=== PATIENT | female | born 1945 | race Caucasian/White ===

== ENCOUNTER → 2018-08-21 | Outpatient (CLI) | payer MEDICARE, OTHER ==
--- NOTE | 2018-08-21 12:53 | CT ---
EXAMINATION TYPE: CT thoracic spine wo con DATE OF EXAM: 08/21/2018 COMPARISON: None HISTORY: Upper back pain with known fracture per patient CT DLP: 536.2 mGycm Automated exposure control for dose reduction was used. TECHNIQUE: Axial images 3 mm thick sections. Reconstructed images in the coronal and sagittal plane. FINDINGS: There is a compression deformity of T4 of indeterminate age. No posterior wall displacement is eviden t. No spinal canal stenosis is present. There is a tiny amount of increased density along the posteri or lateral thecal sac of indeterminate etiology. Series 201 image [id number]. Minimal superior endplate compression of T6 is present. No posterior wall displacement is evident. No spinal canal stenosis is present. There is inferior endplate compression of T10. Minimal endplate impression from the posterior wall is present. Significant displacement into the thecal sac is not evident. No stenosis is present. There is vertebral plasty of a severe L1 compression deformity. Some mild superior endplate and infer ior endplate displacement into the spinal canal is present. No spinal canal stenosis is evident. No d efinite cord contact or compression is evident. Note is made of some facet hypertrophy at the T12-L1 level. There is degenerative disc changes within the thoracic spine including vacuum disc phenomenon present T11-12 and T8-9. No spinal canal stenosis is present. IMPRESSION: 1. COMPRESSION DEFORMITIES OF INDETERMINATE AGE T4 AND MILDLY PRESENT T6 AND INFERIOR ENDPLATE T10. 2. MINIMAL POSTERIOR WALL DISPLACEMENT FROM AN OLD COMPRESSION DEFORMITY AT L1 MILD ANTERIOR THECAL S AC COMPRESSION. VERTEBRAL PLASTY IS PRESENT AT L1.
== END ==
LOC: RADCTMAIN 12:06
PROVIDERS: ATTEND Nurse Practitioner Acute Care
DX: M43.8X4 Other specified deforming dorsopathies, thoracic region (principal); Z98.890 Other specified postprocedural states
CPT/HCPCS: 72128

== ENCOUNTER → 2018-09-11 | Outpatient (CLI) | payer MEDICARE, OTHER ==
--- NOTE | 2018-09-11 12:07 | CT ---
EXAMINATION TYPE: CT thor lumbar spine wo con DATE OF EXAM: 09/11/2018 COMPARISON: CT thoracic spine dated 08/21/2018 HISTORY: Complains of severe back pain CT DLP: 417.6 mGycm Automated exposure control for dose reduction was used. FINDINGS: There is grade 1 anterolisthesis of L4 on L5, likely on a degenerative basis due to facet hypertrophy . Nose pars interarticularis defects are seen. The remainder of the lumbar spine and thoracic spine v ertebral bodies maintain normal alignment. Multilevel vertebral body height loss is detailed below. There is a compression deformity of T4 with vertebroplasty. Height loss is approximately 50%. No retr opulsion is seen. Tiny increased density along the posterior lateral thecal sac may relate to extrava sated cement material, possibly venous or epidural. This is stable from the prior exam. There is minimal superior endplate compression forming at T6 with vertebroplasty as seen on the prior . No retropulsion. There is a progressed compression deformity of T10 with subsequent vertebral body sclerosis now appro ximately 50% vertebral body height loss of both the anterior and posterior aspects of the vertebral b delia involving the superior endplate and inferior endplate. There is retropulsion of the inferior post erior endplate approximately 3 mm into the spinal canal. There is a stable approximately 80% compression deformity of the the L1 vertebral body with kyphoplas ty change extending into the intervertebral disc space. Very minimal retropulsion of the superior and inferior endplates are seen into the spinal canal. There is a stable superior endplate compression deformity of the L2 vertebral body with intervertebra l disc space segment between L1 and L2. No significant retropulsion. There is compression deformity of the L5 vertebral body of approximately 40% with minimal retropulsi on of the superior posterior endplate. There is multilevel degenerative disc disease of the thoracic and lumbar spine without significant ne ural foraminal narrowing throughout the thoracic spine. Within the lumbar spine there is resultant mi ld neural foraminal narrowing bilaterally at L1-L2, moderate bilateral neural foraminal narrowing at L2-L3 and L3-L4, and moderate right neural foraminal narrowing at L4-L5 as well as mild left neural f oraminal narrowing at L4-L5. Moderate bilateral neural foraminal narrowing at L5-S1 is also seen. Multilevel mild spinal canal stenosis is present at L1-L2, L2-L3, L3-L4, and L4-L5. Mild spinal canal stenosis from the retropulsion is seen at T10-T11. There is a moderate hiatal hernia incidentally seen with atherosclerosis of the thoracic aorta and pa rtial visualization of coronary arteries. 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 Left renal cystic lesion is partially visualized and incompletely evaluated without cont rast measuring approximately 2.3 cm. IMPRESSION: 1. PROGRESSIVE COLLAPSE OF THE PREVIOUSLY SEEN COMPRESSION DEFORMITY OF THE T10 VERTEBRAL BODY, NOW P ROXIMALLY 50% WITH 3 MM RETROPULSION OF THE INFERIOR POSTERIOR ENDPLATE INTO THE SPINAL CANAL CREATIN G MILD SPINAL CANAL STENOSIS. 2. COMPRESSION DEFORMITY OF THE L5 VERTEBRAL BODY WITHOUT RESULTANT SPINAL CANAL STENOSIS DESCRIBE D ABOVE. 3. MULTILEVEL STABLE COMPRESSION DEFORMITIES, SOME OF WHICH DEMONSTRATE VERTEBROPLASTY SEEN ON THE PRIOR CT THORAX DATED 08/21/2018. 4. MULTILEVEL DEGENERATIVE DISC DISEASE CREATING SPINAL CANAL STENOSIS THROUGHOUT THE LUMBAR SPINE IN VARIABLE DEGREES OF NEURAL FORAMINAL NARROWING DESCRIBED ABOVE. 5. MALALIGNMENT AT L4-L5, LIKELY ON A DEGENERATIVE BASIS. 6. INCIDENTALLY NOTED LEFT SPLENIC ARTERIAL PSEUDOANEURYSM, LEFT RENAL CYSTIC LESION THAT IS PARTIALL Y VISUALIZED, AND MODERATE HIATAL HERNIA.
== END ==
LOC: RADCTMAIN 10:53
PROVIDERS: ATTEND Psychiatry & Neurology Neurology
DX: M48.061 Spinal stenosis, lumbar region without neurogenic claudication (principal); M99.73 Connective tissue and disc stenosis of intervertebral foramina of lumbar region; M43.8X6 Other specified deforming dorsopathies, lumbar region; Z98.890 Other specified postprocedural states
CPT/HCPCS: 72128; 72131

== ENCOUNTER → 2018-12-10 | Outpatient (CLI) | payer MEDICARE, OTHER ==
[~2018-12-10] MED LIST: HYDROmorphone 0.5 MG/0.5 ML SYRINGE IVP PRN; KETAMINE 10 MG/ML 20 ML VIAL ONE; LACTATED RINGERS 1,000 ML IV SCH; MIDAZOLAM 2 MG/2 ML VIAL ONE; fentaNYL (PF) 50 MCG/ML 2 ML AMP ONE
[2018-12-10 08:41] VITALS: RESP 18
[2018-12-10 08:45] VITALS: BP 155/73; PULSE 74
--- NOTE | 2018-12-10 10:09 | CT ---
EXAMINATION TYPE: CT CervThorLumbar spine wo con DATE OF EXAM: 12/10/2018 COMPARISON: 09/11/2018 HISTORY: Fx Thoracic Vertebrae CT DLP: 1445.9 mGycm Automated exposure control for dose reduction was used. FINDINGS: CERVICAL: Evaluation of the spinal canal is limited due to resolution and not artifact. Diffuse osteopenia noted. There is multilevel degenerative disc disease with most marked findings at C5-C6. Multilevel facet arthropathy and and uncovertebral joint hypertrophy. Canal stenosis and moni inal encroachment C5-C6. Recommend follow-up MRI. Right-sided foraminal encroachment C6-C7 due to hyp ertrophic changes of the facets and uncovertebral joint hypertrophy. No compression deformities. Marked arthropathy of the articulation of the right C2 vertebral body and C1 lateral mass. Atheroscle rotic changes of the carotid arteries. THORACOLUMBAR: There is grade 1 anterolisthesis of L4 on L5, likely on a degenerative basis due to facet hypertroph y. Nose pars interarticularis defects are seen. The remainder of the lumbar spine and thoracic spine vertebral bodies maintain normal alignment. Multilevel vertebral body height loss is detailed below. There is a compression deformity of T4 with vertebroplasty. Height loss is approximately 50%. No retr opulsion is seen. Tiny increased density along the posterior lateral thecal sac may relate to extrava sated cement material, possibly venous or epidural. This is stable from the prior exam. There is minimal superior endplate compression forming at T6 with vertebroplasty as seen on the prior . No retropulsion. There is a mildly progressed severe compression deformity of T10 with subsequent vertebral body scler osis with vertebral body height loss of both the anterior and posterior aspects of the vertebral body involving the superior endplate and inferior endplate. There is retropulsion of the inferior posteri or endplate approximately 3 mm into the spinal canal. Chronic appearing right transverse process proc ess fracture at this level also noted. There is a stable approximately 80% compression deformity of the the L1 vertebral body with kyphoplas ty change extending into the intervertebral disc space. Very minimal retropulsion of the superior and inferior endplates are seen into the spinal canal. Spur extends paracentrally to left. Could not exc lude canal stenosis. There is compression deformity of the L5 vertebral body of approximately 40% with minimal retropulsio n of the superior posterior endplate. There is multilevel degenerative disc disease of the thoracic and lumbar spine without significant ne ural foraminal narrowing throughout the thoracic spine. Within the lumbar spine there is resultant mi ld neural foraminal narrowing bilaterally at L1-L2, moderate bilateral neural foraminal narrowing at L2-L3 and L3-L4, and moderate right neural foraminal narrowing at L4-L5 as well as mild left neural f oraminal narrowing at L4-L5. Moderate bilateral neural foraminal narrowing at L5-S1 is also seen. Mul tilevel facet arthropathy noted. Multilevel mild spinal canal stenosis is present at L1-L2, L2-L3, L3-L4, and L4 -L5. Mild spinal kenize l stenosis from the retropulsion is seen at T10-T11. Cannot exclude central disc protrusion L4-L5. Co rrelate with MRI. There is a moderate hiatal hernia incidentally seen with atherosclerosis of the thoracic aorta and pa rtial visualization of coronary arteries. 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 Left renal cystic lesion is partially visualized and incompletely evaluated without cont rast measuring approximately 2.3 cm. Coronary artery calcification noted. 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 IMPRESSION: 1. PROGRESSIVE COLLAPSE OF THE PREVIOUSLY SEEN COMPRESSION DEFORMITY OF THE T10 VERTEBRAL BODY, NOW S EVERE WITH 3 MM RETROPULSION OF THE INFERIOR POSTERIOR ENDPLATE INTO THE SPINAL CANAL CREATING MILD S HÉCTOR CANAL STENOSIS. 2. COMPRESSION DEFORMITY OF THE L5 VERTEBRAL BODY WITHOUT RESULTANT SPINAL CANAL STENOSIS DESCRIBE D ABOVE. 3. MULTILEVEL STABLE COMPRESSION DEFORMITIES, SOME OF WHICH DEMONSTRATE VERTEBROPLASTY SEEN ON THE PRIOR CT THORAX DATED 08/21/2018. 4. MULTILEVEL DEGENERATIVE DISC DISEASE CREATING SPINAL CANAL STENOSIS THROUGHOUT THE LUMBAR SPINE IN VARIABLE DEGREES OF NEURAL FORAMINAL NARROWING DESCRIBED ABOVE CANNOT EXCLUDE CENTRAL DISC PROTRU BETSEY L4-L5 WHICH COULD BE CORRELATED WITH MRI. 5. MALALIGNMENT AT L4-L5, LIKELY ON A DEGENERATIVE BASIS. 6. MULTILEVEL DEGENERATIVE DISC DISEASE CERVICAL SPINE MOST MARKED FINDINGS AT C5-6 AND C6-C7. CANAL STENOSIS AND FORAMINAL ENCROACHMENT SUSPECTED AT C5-C6 CORRELATE WITH MRI.
== END ==
LOC: RADCTMAIN 07:24
PROVIDERS: ATTEND Nurse Practitioner Acute Care
DX: M43.8X4 Other specified deforming dorsopathies, thoracic region (principal); M43.8X6 Other specified deforming dorsopathies, lumbar region; M48.061 Spinal stenosis, lumbar region without neurogenic claudication; M48.02 Spinal stenosis, cervical region; M51.36 Other intervertebral disc degeneration, lumbar region; M99.73 Connective tissue and disc stenosis of intervertebral foramina of lumbar region; M50.322 Other cervical disc degeneration at C5-C6 level
CPT/HCPCS: 72128; 72125; 72131; J2250; J3010

== ENCOUNTER → 2019-03-26 | Outpatient (CLI) | payer MEDICARE, OTHER ==
[2019-03-26 12:36] LABS: Basophils # (A) 0.1 k/uL (0-0.2); Basophils % (A) 1 %; Eosinophils # (A) 0.4 k/uL (0-0.7); Eosinophils % (A) 4 %; HCT 35.5 % (34.0-46.0); Lymphocytes # (A) 2.4 k/uL (1.0-4.8); Lymphocytes % (A) 26 %; MCH 28.9 pg (25.0-35.0); MCV 93.3 fL (80.0-100.0); Mean Platelet Volume 6.2; Monocytes # (A) 0.6 k/uL (0-1.0); Monocytes % (A) 6 %; Neutrophils # (A) 5.6 k/uL (1.3-7.7); Neutrophils % (A) 62 %; Platelet Count 627 k/uL (150-450); RBC 3.81 m/uL (3.80-5.40); RDW 14.6 % (11.5-15.5); WBC 9.2 k/uL (3.8-10.6)
== END ==
LOC: LABPAT 11:49
PROVIDERS: ATTEND Surgery
DX: Z01.812 Encounter for preprocedural laboratory examination (principal); K43.0 Incisional hernia with obstruction, without gangrene; K43.9 Ventral hernia without obstruction or gangrene
CPT/HCPCS: 36415; 85025

== ENCOUNTER 2019-04-02 09:38 | Day surgery (SDC) | payer MEDICARE, OTHER ==
[2019-04-01 09:16] VITALS: BMI 25.1
[~2019-04-02 09:38] MED LIST changes: +DEXAMETHASONE SOD PHOSPHATE 10 MG/ML 1 ML VIAL IV ONE; +HEPARIN SODIUM,PORCINE 5,000 UNIT/ML 1 ML VIAL SQ ONE; -HYDROmorphone 0.5 MG/0.5 ML SYRINGE IVP PRN; -KETAMINE 10 MG/ML 20 ML VIAL ONE; +LIDOCAINE 1% 20 ML VIAL (10MG/ML) FOR IV START INTRADERMA PRN; +MIDAZOLAM 2 MG/2 ML VIAL IV PRN; -MIDAZOLAM 2 MG/2 ML VIAL ONE; +ONDANSETRON 4 MG/2 ML VIAL IVP ONE; +SCOPOLAMINE 1.5MG/72HR PATCH TRANSDERM ONE; +ceFAZolin IN SWFI 2 GM/20 ML SYRINGE IVP ONE; -fentaNYL (PF) 50 MCG/ML 2 ML AMP ONE
--- NOTE | 2019-04-02 10:24 | P.GSHP ---
History of Present Illness H&P Date: 04/02/19 Chief Complaint: Incisional hernia This a 73-year-old female who's developed recurrent incisional hernia just below her umbilicus. Patient presents today for laparoscopic robotic-assisted repair. Past Medical History Past Medical History: COPD, Diabetes Mellitus, Deep Vein Thrombosis (DVT), Fibromyalgia, GERD/Reflux, Hyperlipidemia, Osteoarthritis (OA), Pneumonia, Thyroid Disorder Additional Past Medical History / Comment(s): hx multiple compression fx's micah legs, osteoporosis, anemia, steroids March 2019, hiatal hernia, hx graves disease, degenerative bone disease in spine, DVT rt leg "years ago", hx high potassium History of Any Multi-Drug Resistant Organisms: None Reported Past Surgical History: Appendectomy, Back Surgery, Hernia Repair, Hysterectomy, Joint Replacement, Tonsillectomy Additional Past Surgical History / Comment(s): micah eye procedures on eye sockets, rt total shoulder, rt total knee, rt carpel tunnel, back disectomy/'cemented", amputation one toe rt foot, left foot bone "repair" Past Anesthesia/Blood Transfusion Reactions: No Reported Reaction Additional Past Anesthesia/Blood Transfusion Reaction / Comment(s): . Smoking Status: Former smoker - Past Family History Father Family Medical History: Cancer Additional Family Medical History / Comment(s): leukemia Medications and Allergies Home Medications Medication Instructions Recorded Confirmed Type Albuterol Nebulized (Conc) 2.5 mg INHALATION BID PRN 12/09/18 04/01/19 History [Ventolin Nebulized (Conc)] Alendronate Sodium [Fosamax] 70 mg PO SA 12/09/18 04/01/19 History Aspirin 81 mg PO DAILY 12/09/18 04/01/19 History Calcium Carbonate [Calcium] 600 mg PO BID 12/09/18 04/01/19 History Cholecalciferol [Vitamin D3] 1,000 unit PO DAILY 12/09/18 04/01/19 History Furosemide [Lasix] 20 mg PO DAILY 12/09/18 04/01/19 History Gemfibrozil [Lopid] 600 mg PO AC-BID 12/09/18 04/01/19 History HYDROcodone/APAP 7.5-325MG [[place] 1 tab PO BID PRN 12/09/18 04/01/19 History 7.5-325] Levothyroxine Sodium [Synthroid] 100 mcg PO QAM 12/09/18 04/01/19 History Montelukast [Singulair] 10 mg PO HS 12/09/18 04/01/19 History Morphine Sulfate [Morphine Sulfate 30 mg PO Q12H 12/09/18 04/01/19 History ER] Omeprazole 20 mg PO BID 12/09/18 04/01/19 History Sertraline HCl [Zoloft] 25 mg PO 1200 12/09/18 04/01/19 History metFORMIN HCL [Glucophage] 500 mg PO BID 12/09/18 04/01/19 History tiZANidine [Zanaflex] 4 mg PO BID PRN 04/01/19 04/01/19 History Allergies Allergy/AdvReac Type Severity Reaction Status Date / Time ibuprofen [From Motrin] Allergy Swelling Verified 04/02/19 10:00 Penicillins Allergy Rash/Hives Verified 04/02/19 10:00 Ptgwplu-[id number]-Nsx Reductase Allergy muscle Verified 04/02/19 10:00 Inhibitor cramps Sulfa (Sulfonamide Allergy Rash/Hives,severe Verified 04/02/19 10:00 Antibiotics) diarrhea sulfamethoxazole Allergy Rash/Hives,severe Verified 04/02/19 10:00 [From Bactrim] diarrhea trimethoprim [From Bactrim] Allergy Rash/Hives,severe Verified 04/02/19 10:00 diarrhea Surgical - Exam Vital Signs Temp Pulse Resp BP Pulse Ox 98 F 73 16 148/70 97 04/02/19 10:11 04/02/19 10:11 04/02/19 10:11 04/02/19 10:11 04/02/19 10:11 - General well developed, well nourished, no distress - Eyes PERRL - ENT normal pinna - Neck no masses - Respiratory normal expansion - Cardiovascular Rhythm: regular - Abdomen Abdomen: soft, non tender Hernia: incisional (Recurrent 5 cm incisional hernia located below umbilicus) Assessment and Plan Assessment: Recurrent incisional hernia. We'll perform laparoscopic robotic-assisted repair.
[2019-04-02 10:37] LABS: Glucose,Whole Blood 95 mg/dL (75-99)
[2019-04-02] MEDS ORDERED: NEOSTIGMINE 1 MG/ML 10 ML VIAL ONE (10:46)
[2019-04-02] MEDS ORDERED: ROCURONIUM BROMIDE 10 MG/ML 10 ML VIAL IV ONE (10:46)
[2019-04-02] MEDS ORDERED: PROPOFOL 10 MG/ML 20 ML VIAL IV ONE (10:46)
[2019-04-02] MEDS ORDERED: HYDROmorphone (PF) 1 MG/ML ONE (10:46)
[2019-04-02] MEDS ORDERED: GLYCOPYRROLATE 0.2 MG/ML 2 ML VIAL ONE (10:46)
[2019-04-02] MEDS ORDERED: SUCCINYLCHOLINE CHLORIDE 100 MG/5 ML SYR IV ONE (10:46)
[2019-04-02] MEDS ORDERED: LIDOCAINE 1% INJ 10MG/ML (20 ML MDV) ONE (10:46)
[2019-04-02] MEDS ORDERED: fentaNYL (PF) 50 MCG/ML 2 ML AMP ONE (10:46)
[2019-04-02] MEDS ORDERED: MIDAZOLAM 2 MG/2 ML VIAL ONE (10:46)
[2019-04-02] MEDS ORDERED: BUPIVACAIN-EPI 0.5%-1:200,000 30 ML VIAL SQ ONE (11:06)
--- NOTE | 2019-04-02 11:50 | P.OP ---
Date of Procedure: 04/02/19 Preoperative Diagnosis: Recurrent incisional hernia Postoperative Diagnosis: Recurrent incisional hernia Procedure(s) Performed: Laparoscopic robotic repair of recurrent incisional hernia Anesthesia: ED Surgeon: Asim Hernandez Estimated Blood Loss (ml): 5 Pathology: none sent Condition: stable Disposition: PACU Description of Procedure: The patient was placed on the operating table in the supine position. He received general anesthesia. His abdomen was prepped and draped usual fashion. Using a 5 mm optical trocar under direct visualization the peritoneal cavity was entered in the left upper quadrant. The abdomen was then insufflated. The laparoscope was placed back into the perineal cavity. Next a 8 mm robotic trocar was placed in the left lower quadrant and a 12 mm robotic trocar was placed in the left lateral position. The original 5 mm trocar was exchanged for a 8 mm robotic trocar. The patient's placed in the left side up position. And the patient was docked to the robot. The incisional hernia was visualized. Using hook cautery the peritoneum over the incisional hernia was excised. The fascial opening was repaired using 0V LOC suture. Next a piece of 11 cm round ventral light ST mesh was placed into the. Cavity and secured with 2 OV lock suture. The patient was undocked the robot. The needles were retrieved. The fascia of the 12 mm trocar site was closed with 0 Ethibond suture. Skin was closed interrupted 3-0 Monocryl suture. Dermabond dressings was applied. Patient tolerated procedure well and was sent to recovery room stable condition.
[2019-04-02 12:03] VITALS: TEMP 97.1
[2019-04-02] MEDS: HYDROmorphone 0.5 MG/0.5 ML SYRINGE IVP PRN ×4 (12:11→12:31)
[2019-04-02] MEDS ORDERED: diphenhydrAMINE 50 MG/ML 1 ML VIAL IVP ONE ×2 (12:33→12:52)
[2019-04-02] MEDS ORDERED: LACTATED RINGERS 1,000 ML IV ONE ×2 (12:58→14:43)
[2019-04-02 13:05] VITALS: RESP 18
[2019-04-02 14:48] VITALS: BP 162/70; PULSE 77
== END 2019-04-02 15:16 | disposition home or self-care (01) ==
LOC: OR 09:38
PROVIDERS: ATTEND Surgery
DX: K43.2 Incisional hernia without obstruction or gangrene (principal); J44.9 Chronic obstructive pulmonary disease, unspecified; E11.9 Type 2 diabetes mellitus without complications; M79.7 Fibromyalgia; K21.9 Gastro-esophageal reflux disease without esophagitis; E78.5 Hyperlipidemia, unspecified; M19.90 Unspecified osteoarthritis, unspecified site; M81.0 Age-related osteoporosis without current pathological fracture; E05.00 Thyrotoxicosis with diffuse goiter without thyrotoxic crisis or storm; Z79.84 Long term (current) use of oral hypoglycemic drugs; Z79.82 Long term (current) use of aspirin; Z79.890 Hormone replacement therapy; Z79.899 Other long term (current) drug therapy; Z79.83 Long term (current) use of bisphosphonates; Z79.891 Long term (current) use of opiate analgesic; Z96.611 Presence of right artificial shoulder joint; Z96.651 Presence of right artificial knee joint; Z89.421 Acquired absence of other right toe(s); Z98.890 Other specified postprocedural states; Z88.6 Allergy status to analgesic agent; Z88.0 Allergy status to penicillin; Z88.2 Allergy status to sulfonamides; Z88.8 Allergy status to other drugs, medicaments and biological substances; Z86.718 Personal history of other venous thrombosis and embolism; Z87.891 Personal history of nicotine dependence
CPT/HCPCS: 49656; C1781; J2250; J1200; J1644; J2710; J2405; J2001; J3010; J1170 ×2; J0330; J2704; J0690; 86850; 86900; 86901

== ENCOUNTER → 2019-12-01 | Outpatient (CLI) | payer MEDICARE, OTHER ==
--- NOTE | 2019-12-01 14:49 | BD ---
EXAMINATION TYPE: Axial Bone Density DATE OF EXAM: 12/01/2019 COMPARISON: NONE CLINICAL HISTORY: Z 78.0 Height: 54.5 IN Weight: 114 LBS FRAX RISK QUESTIONS: History of Fracture in Adulthood: LT WRIST AGE 57 Secondary Osteoporosis: 3. Menopause before 45: YES TOTAL HYST AGE 29 4. Malnutrition: YES RISK FACTORS HISTORY OF: History of Wrist Fracture: YES LEFT When: AGE 57 Family History of Osteoporosis: YES SISTER Active: NO Diet low in dairy products/other sources of calcium: YES Postmenopausal woman: AGE 29 TOTAL HYST Lost more than 2 inches in height since high school: YES 7" MEDICATIONS: Thyroid Medications: YES Which medication: Levothyroxine How Lon + YEARS Osteoporosis Medications: YES Which medication: Fosamax How Lon YEARS Additional Medications: CALCIUM, VIT D, LEVOTHYROXINE, FOSAMAX, PAIN MED, GERD MEDS, IRON PILLS, WATE R PILL, CHOLESTEROL MEDS, EXAM MEASUREMENTS: PT STATES NO METAL IN BONE. Bone mineral densitometry was performed using the [employer] System. Bone mineral density as measured about the Lumbar spine is: ----- L1-L4(G/cm2): 1.214 T Score Values are as follows: ----- L2: -1.1 ----- L3: 0.7 ----- L4: -1.2 ----- L1-L4: 0.3 Bone mineral density BASELINE Bone mineral density about the R hip (g/cm2): 0.735 Bone mineral density about the L hip (g/cm2): 0.836 T Score values are as follows: -----R Neck: -2.2 -----L Neck: -1.5 -----R Total: -3.1 -----L Total: -1.8 Bone mineral density BASELINE IMPRESSION: Osteoporosis (T Score less than -2.5). There is increased fracture risk and therapy is usually indicated based on age. Re-Screen 1-2 years. NOTE: T-SCORE=SD OF THE YOUNG ADULT MEAN.
--- NOTE | 2019-12-02 11:36 | MM ---
Reason for exam: screening (asymptomatic). Last mammogram was performed 1 year and 2 months ago. History: Patient is postmenopausal. Physical Findings: A clinical breast exam by your physician is recommended on an annual basis and results should be correlated with mammographic findings. MG Screening Mammo w CAD Bilateral CC and MLO view(s) were taken. Prior study comparison: September 23, 2018, mammogram, performed at [facility]. There are scattered fibroglandular densities. There is no discrete abnormality. No significant changes when compared with prior studies. ASSESSMENT: Negative, BI-RAD 1 RECOMMENDATION: Routine screening mammogram of both breasts in 1 year.
== END | disposition home or self-care (01) ==
LOC: RADMAMWWP 09:59
PROVIDERS: ATTEND Family Medicine
DX: Z12.31 Encounter for screening mammogram for malignant neoplasm of breast (principal); M81.0 Age-related osteoporosis without current pathological fracture
CPT/HCPCS: 77067; 77080

== ENCOUNTER → 2020-10-06 | Day surgery (SDC) | payer MEDICARE, OTHER ==
[2020-10-04 12:19] VITALS: BMI 25.1
[~2020-10-06] MED LIST changes: +BUPIVACAINE (PF) 0.25% 30 ML VIAL SQ ONE; -DEXAMETHASONE SOD PHOSPHATE 10 MG/ML 1 ML VIAL IV ONE; +DEXAMETHASONE SOD PHOSPHATE 4 MG/ML 1 ML VIAL IV ONE; +HEPARIN SODIUM,PORCINE 5,000 UNIT/ML 1 ML VIAL ONE; +HYDROmorphone 0.5 MG/0.5 ML SYRINGE IVP PRN; +LIDOCAINE 1% (10MG/ML) FOR IV START INTRADERMA ONE; -LIDOCAINE 1% 20 ML VIAL (10MG/ML) FOR IV START INTRADERMA PRN; +LIDOCAINE 1% INJ 10MG/ML (20 ML MDV) ONE; -MIDAZOLAM 2 MG/2 ML VIAL IV PRN; +MIDAZOLAM 2 MG/2 ML VIAL IVP ONE; +MIDAZOLAM 2 MG/2 ML VIAL ONE; +PROPOFOL 10 MG/ML 20 ML VIAL IV ONE; +ROPIVACAINE 5 MG/ML 30 ML VIAL ONE; -SCOPOLAMINE 1.5MG/72HR PATCH TRANSDERM ONE; +SODIUM CHLORIDE 0.9% 1,000 ML IV ONE; +SUCCINYLCHOLINE CHLORIDE 100 MG/5 ML SYR IV ONE; -ceFAZolin IN SWFI 2 GM/20 ML SYRINGE IVP ONE; +fentaNYL (PF) 50 MCG/ML 2 ML AMP ONE
[2020-10-06 11:19] LABS: Glucose,Whole Blood 87 mg/dL (75-99)
--- NOTE | 2020-10-06 13:16 | P.GSHP ---
History of Present Illness H&P Date: 10/06/20 Chief Complaint: Right inguinal hernia This a 74-year-old female who presents today for open repair of a large right reducible inguinal hernia. Patient developed a mass in the right groin. Past Medical History Past Medical History: COPD, Diabetes Mellitus, Deep Vein Thrombosis (DVT), GERD/Reflux, Hyperlipidemia, Osteoarthritis (OA), Pneumonia, Thyroid Disorder Additional Past Medical History / Comment(s): multiple compression fx's, osteoporosis, anemia(gets iron infusions), hiatal hernia, "bladder does not emply all the way", hx graves disease, degenerative disks, "I have had low sodium, high potassium levels," has problems with balance History of Any Multi-Drug Resistant Organisms: None Reported Past Surgical History: Appendectomy, Back Surgery, Hernia Repair, Hysterectomy, Joint Replacement, Tonsillectomy Additional Past Surgical History / Comment(s): micah eye surgery due to graves disease, rt total shoulder,rt total knee replacement, micah feet procedures, micah carpel tunnel, one toe each foot removed/shortened micah feet, pain stimulator in spine with wires, micah cataracts, back surgery with "cement" Past Anesthesia/Blood Transfusion Reactions: No Reported Reaction Additional Past Anesthesia/Blood Transfusion Reaction / Comment(s): . Smoking Status: Former smoker - Past Family History Father Family Medical History: Cancer Additional Family Medical History / Comment(s): leukemia Medications and Allergies Home Medications Medication Instructions Recorded Confirmed Type Alendronate Sodium [Fosamax] 70 mg PO SA 12/09/18 10/06/20 History Aspirin 81 mg PO DAILY 12/09/18 10/06/20 History Calcium Carbonate [Calcium] 600 mg PO DAILY 12/09/18 10/06/20 History Cholecalciferol [Vitamin D3] 1,000 unit PO DAILY 12/09/18 10/06/20 History Furosemide [Lasix] 20 mg PO DAILY 12/09/18 10/06/20 History HYDROcodone/APAP 7.5-325MG [[place] 1 tab PO BID PRN 12/09/18 10/06/20 History 7.5-325] Levothyroxine Sodium [Synthroid] 100 mcg PO QAM 12/09/18 10/06/20 History Montelukast [Singulair] 10 mg PO HS 12/09/18 10/06/20 History Morphine Sulfate [Morphine Sulfate 30 mg PO Q12H 12/09/18 10/06/20 History ER] Omeprazole 20 mg PO BID 12/09/18 10/06/20 History Sertraline HCl [Zoloft] 25 mg PO 1200 12/09/18 10/06/20 History gemfibroziL [Lopid] 600 mg PO AC-BID 12/09/18 10/06/20 History metFORMIN HCL [Glucophage] 500 mg PO BID 12/09/18 10/06/20 History tiZANidine [Zanaflex] 4 mg PO BID PRN 04/01/19 10/06/20 History Ascorbic Acid [Vitamin C] 500 mg PO DAILY 10/04/20 10/06/20 History Ferrous Sulfate [Feosol] 325 mg PO BID 10/04/20 10/06/20 History Ipratropium-Albuterol Nebulize 3 ml INHALATION TID PRN 10/04/20 10/06/20 History [Duoneb 0.5 mg-3 mg/3 ml Soln] Tamsulosin [Flomax] 0.4 mg PO HS 10/04/20 10/06/20 History Tiotropium 18 Mcg/Puff [Spiriva] 1 puff INHALATION DAILY 10/04/20 10/06/20 History Allergies Allergy/AdvReac Type Severity Reaction Status Date / Time Igkeond-Sae-Fws Reductase Allergy muscle Verified 10/06/20 11:14 Inhibitor cramps Sulfa (Sulfonamide Allergy Rash/Hives,severe Verified 10/06/20 11:14 Antibiotics) diarrhea Surgical - Exam Vital Signs Pulse Resp BP Pulse Ox 71 18 136/66 98 10/06/20 11:19 10/06/20 11:19 10/06/20 11:19 10/06/20 11:19 - General well developed, well nourished, no distress - Eyes PERRL - ENT normal pinna - Neck no masses - Respiratory normal expansion - Cardiovascular Rhythm: regular - Abdomen Abdomen: soft, non tender Hernia: inguinal (Large right inguinal hernia) Assessment and Plan Assessment: Right inguinal hernia. We'll perform open repair.
--- NOTE | 2020-10-06 13:54 | P.ANPRN ---
Procedure Note - Anesthesia - Nerve Block Performed Right Transversus Abdominis Single Time Out Performed: Yes (1132) Date of Procedure: 10/06/20 Procedure Start Time: 11:33 Procedure Stop Time: 11:41 Location of Patient: PreOp Indication: Acute Post-Operative Pain, Requested by Surgeon Specifically requested for management of pain by DrYanet: Asim eHrnandez Sedation Type: Sedate with meaningful contact maintained Preparation: Sterile Prep Position: Supine Catheter: None Needle Types: Pajunk Needle Gauge: 21 Ultrasound used to visualize needle placement: Yes Ultrasound used to observe medication spread: Yes Injectate: 0.5% Ropivacaine (see comment for volume) (20cc) Blood Aspirated: No Pain Paresthesia on Injection Noted: No Resistance on Injection: Normal Image Stored and Saved: Yes Events: Uneventful and Well Tolerated
--- NOTE | 2020-10-06 14:26 | P.OP ---
Date of Procedure: 10/06/20 Preoperative Diagnosis: Right inguinal hernia Postoperative Diagnosis: Right inguinal hernia Procedure(s) Performed: () Inguinal hernia Anesthesia: ED Surgeon: Asim Hernandez Pathology: none sent Condition: stable Disposition: PACU Description of Procedure: The patient's placed on the operating table in the supine position. She received general anesthesia. Her right groin was prepped and draped usual sterile fashion. A standard hernia incision was made in the right groin. Using blunt and sharp dissection with cautery the hernia sac was dissected free from some taste tissues. Hernia sac was then dissected and then inverted back into the pleural cavity. A Prolene mesh plug was created using a 3 x 6" piece of Prolene cyst cut and secured to plug fashion the plug was placed into the inguinal canal. The plug was then secured using 0 Ethibond and 2-0 Prolene suture. Katherine's fascia closed with 3-0 Vicryl. Skin was closed fabienne. Patient top she will was sent to recovery room in stable condition..
[2020-10-06 14:41] VITALS: TEMP 97.6
[2020-10-06 14:47] LABS: Glucose,Whole Blood 99 mg/dL (75-99)
[2020-10-06 16:17] VITALS: RESP 20
[2020-10-06 16:33] VITALS: BP 130/61; PULSE 74
== END | disposition home or self-care (01) ==
LOC: OR 10:48
PROVIDERS: ATTEND Surgery
DX: K40.90 Unilateral inguinal hernia, without obstruction or gangrene, not specified as recurrent (principal); J44.9 Chronic obstructive pulmonary disease, unspecified; E11.9 Type 2 diabetes mellitus without complications; Z86.718 Personal history of other venous thrombosis and embolism; K21.9 Gastro-esophageal reflux disease without esophagitis; E78.5 Hyperlipidemia, unspecified; M19.90 Unspecified osteoarthritis, unspecified site; Z87.01 Personal history of pneumonia (recurrent); E07.9 Disorder of thyroid, unspecified; M81.0 Age-related osteoporosis without current pathological fracture; D64.9 Anemia, unspecified; Z86.39 Personal history of other endocrine, nutritional and metabolic disease; Z96.651 Presence of right artificial knee joint; Z98.42 Cataract extraction status, left eye; Z98.41 Cataract extraction status, right eye; Z98.890 Other specified postprocedural states; Z87.891 Personal history of nicotine dependence; Z80.6 Family history of leukemia; Z79.84 Long term (current) use of oral hypoglycemic drugs; Z79.82 Long term (current) use of aspirin; Z79.890 Hormone replacement therapy; Z79.891 Long term (current) use of opiate analgesic; Z79.899 Other long term (current) drug therapy; Z88.2 Allergy status to sulfonamides; Z88.8 Allergy status to other drugs, medicaments and biological substances
CPT/HCPCS: 64488; 49505; C1781; J2250; J1644; J1100; J0690; J2405; J2001; J3010; J2795; J0330; J2704

== ENCOUNTER 2020-11-02 04:05 | Emergency (ER) | payer MEDICARE, OTHER ==
[2020-11-02 04:22] VITALS: TEMP 98
--- NOTE | 2020-11-02 04:29 | ED ---
SOB HPI - General Chief Complaint: Shortness of Breath Stated Complaint: LESLIE,COPD Time Seen by Provider: 11/02/20 04:15 Source: patient Mode of arrival: wheelchair Limitations: no limitations - History of Present Illness Initial Comments: This patient is 75-year-old woman who presents with complaint that her breathing had worsened tonight such she was not able to lie flat to sleep. Patient states she has been having a flareup of COPD for nearly one month. Her symptoms had started with what she felt was sinus infection approximately month ago and then developed into COPD flare. She has been seen by her clinic doctor and had been given course of antibiotic and also course of steroid. She states that over the course of tonight she was not able to lie flat as this made her breathing worse. Patient denies any associated chest or abdominal pain. Had not noted fever. MD Complaint: shortness of breath, cough Severity scale (1-10): 0 Consistency: constant Improves With: nothing Worsens With: lying flat Known History Of: COPD Context: recent URI Associated Symptoms: cough, sputum production, orthopnea Treatments Prior to Arrival: bronchodilator - Related Data Home Medications Medication Instructions Recorded Confirmed Alendronate Sodium [Fosamax] 70 mg PO SA 12/09/18 10/06/20 Aspirin 81 mg PO DAILY 12/09/18 10/06/20 Calcium Carbonate [Calcium] 600 mg PO DAILY 12/09/18 10/06/20 Cholecalciferol [Vitamin D3] 1,000 unit PO DAILY 12/09/18 10/06/20 Furosemide [Lasix] 20 mg PO DAILY 12/09/18 10/06/20 HYDROcodone/APAP 7.5-325MG [Dodge 1 tab PO BID PRN 12/09/18 10/06/20 7.5-325] Levothyroxine Sodium [Synthroid] 100 mcg PO QAM 12/09/18 10/06/20 Montelukast [Singulair] 10 mg PO HS 12/09/18 10/06/20 Morphine Sulfate [Morphine Sulfate 30 mg PO Q12H 12/09/18 10/06/20 ER] Omeprazole 20 mg PO BID 12/09/18 10/06/20 Sertraline HCl [Zoloft] 25 mg PO 1200 12/09/18 10/06/20 gemfibroziL [Lopid] 600 mg PO AC-BID 12/09/18 10/06/20 metFORMIN HCL [Glucophage] 500 mg PO BID 12/09/18 10/06/20 tiZANidine [Zanaflex] 4 mg PO BID PRN 04/01/19 10/06/20 Ascorbic Acid [Vitamin C] 500 mg PO DAILY 10/04/20 10/06/20 Ferrous Sulfate [Feosol] 325 mg PO BID 10/04/20 10/06/20 Ipratropium-Albuterol Nebulize 3 ml INHALATION TID PRN 10/04/20 10/06/20 [Duoneb 0.5 mg-3 mg/3 ml Soln] Tamsulosin [Flomax] 0.4 mg PO HS 10/04/20 10/06/20 Tiotropium 18 Mcg/Puff [Spiriva] 1 puff INHALATION DAILY 10/04/20 10/06/20 Previous Rx's Medication Instructions Recorded Acetaminophen Tab [Tylenol] 650 mg PO Q6H #30 tab 10/06/20 Docusate [Colace] 100 mg PO BID #20 capsule 10/06/20 Ibuprofen [Motrin] 600 mg PO Q6HR PRN #40 tab 10/06/20 oxyCODONE HCL [OxyIR] 5 mg PO Q4H PRN 3 Days #18 tab 10/06/20 Allergies Allergy/AdvReac Type Severity Reaction Status Date / Time Dgotsnn-Bpv-Uet Reductase Allergy muscle Verified 11/02/20 04:22 Inhibitor cramps Sulfa (Sulfonamide Allergy Rash/Hives,severe Verified 11/02/20 04:22 Antibiotics) diarrhea Review of Systems ROS Statement: Those systems with pertinent positive or pertinent negative responses have been documented in the HPI. ROS Other: All systems not noted in ROS Statement are negative. Constitutional: Denies: fever, chills ENT: Reports: congestion Respiratory: Reports: cough, dyspnea, wheezes. Denies: hemoptysis Cardiovascular: Reports: orthopnea. Denies: chest pain, palpitations, edema, syncope Gastrointestinal: Denies: abdominal pain, nausea, vomiting, diarrhea Genitourinary: Denies: dysuria, hematuria Musculoskeletal: Denies: back pain Skin: Denies: rash Neurological: Denies: headache, weakness Past Medical History Past Medical History: COPD, Diabetes Mellitus, Deep Vein Thrombosis (DVT), GERD/Reflux, Hyperlipidemia, Osteoarthritis (OA), Pneumonia, Thyroid Disorder Additional Past Medical History / Comment(s): multiple compression fx's, osteoporosis, anemia(gets iron infusions), hiatal hernia, "bladder does not emply all the way", hx graves disease, degenerative disks, "I have had low sodium, high potassium levels," has problems with balance History of Any Multi-Drug Resistant Organisms: None Reported Past Surgical History: Appendectomy, Back Surgery, Hernia Repair, Hysterectomy, Joint Replacement, Tonsillectomy Additional Past Surgical History / Comment(s): micah eye surgery due to graves disease, rt total shoulder,rt total knee replacement, micah feet procedures, micah carpel tunnel, one toe each foot removed/shortened micah feet, pain stimulator in spine with wires, micah cataracts, back surgery with "cement" Past Anesthesia/Blood Transfusion Reactions: No Reported Reaction Additional Past Anesthesia/Blood Transfusion Reaction / Comment(s): . Past Psychological History: Anxiety, Depression Smoking Status: Former smoker Past Alcohol Use History: None Reported Past Drug Use History: None Reported - Past Family History Father Family Medical History: Cancer Additional Family Medical History / Comment(s): leukemia General Exam Limitations: no limitations General appearance: alert, in distress Head exam: Present: atraumatic, normocephalic Eye exam: Present: normal appearance Respiratory exam: Present: respiratory distress, wheezes, rhonchi. Absent: rales, stridor Cardiovascular Exam: Present: regular rate, normal rhythm, normal heart sounds. Absent: systolic murmur, diastolic murmur, rubs, gallop GI/Abdominal exam: Present: soft. Absent: distended, tenderness, guarding, rebound, rigid, mass Extremities exam: Present: normal inspection, normal capillary refill. Absent: pedal edema, calf tenderness Back exam: Present: normal inspection. Absent: CVA tenderness (R), CVA tenderness (L) Neurological exam: Present: alert Skin exam: Present: warm, dry, intact, normal color. Absent: rash Course Vital Signs 11/02/20 11/02/20 11/02/20 04:20 04:22 04:30 Temperature 98 F Pulse Rate 84 Respiratory 24 25 H Rate Blood Pressure 132/87 O2 Sat by Pulse 94 L Oximetry 11/02/20 11/02/20 11/02/20 05:13 05:19 05:22 Temperature Pulse Rate 85 88 88 Respiratory 18 Rate Blood Pressure 126/78 O2 Sat by Pulse 94 L Oximetry Medical Decision Making - Medical Decision Making Patient 75-year-old woman with COPD exacerbation. Given the hyponatremia, I made arrangements for admission to correct sodium and also further treat COPD exacerbation. The patient subsequently decided that she wanted to go home and follow with her physician. She states that the hyponatremia is a chronic condition and I did explain level is lower than is usual for her. Discussed fluid restriction. - Lab Data Result diagrams: 11/02/20 04:41 11/02/20 04:41 Lab Results 11/02/20 11/02/20 11/02/20 Range/Units 03:05 04:41 04:41 WBC 12.7 H (3.8-10.6) k/uL RBC 3.67 L (3.80-5.40) m/uL Hgb 11.5 (11.4-16.0) gm/dL Hct 34.0 (34.0-46.0) % MCV 92.8 (80.0-100.0) fL MCH 31.3 (25.0-35.0) pg MCHC 33.8 (31.0-37.0) g/dL RDW 15.0 (11.5-15.5) % Plt Count 554 H (150-450) k/uL MPV 6.3 Neutrophils % 68 % Lymphocytes % 18 % Monocytes % 7 % Eosinophils % 5 % Basophils % 1 % Neutrophils # 8.7 H (1.3-7.7) k/uL Lymphocytes # 2.3 (1.0-4.8) k/uL Monocytes # 0.9 (0-1.0) k/uL Eosinophils # 0.6 (0-0.7) k/uL Basophils # 0.1 (0-0.2) k/uL PT 9.7 (9.0-12.0) sec INR 0.9 (<1.2) APTT 24.5 (22.0-30.0) sec Sodium (137-145) mmol/L Potassium (3.5-5.1) mmol/L Chloride (98-107) mmol/L Carbon Dioxide (22-30) mmol/L Anion Gap mmol/L BUN (7-17) mg/dL Creatinine (0.52-1.04) mg/dL Est GFR (CKD-EPI)AfAm (>60 ml/min/1.73 sqM) Est GFR (CKD-EPI)NonAf (>60 ml/min/1.73 sqM) Glucose (74-99) mg/dL Plasma Lactic Acid Miguel (0.7-2.0) mmol/L Calcium (8.4-10.2) mg/dL Magnesium (1.6-2.3) mg/dL Total Bilirubin (0.2-1.3) mg/dL AST (14-36) U/L ALT (4-34) U/L Alkaline Phosphatase (38-126) U/L Troponin I (0.000-0.034) ng/mL NT-Pro-B Natriuret Pep pg/mL Total Protein (6.3-8.2) g/dL Albumin (3.5-5.0) g/dL Coronavirus (PCR) Not Detected (Not Detectd) 11/02/20 11/02/20 11/02/20 Range/Units 04:41 04:41 04:41 WBC (3.8-10.6) k/uL RBC (3.80-5.40) m/uL Hgb (11.4-16.0) gm/dL Hct (34.0-46.0) % MCV (80.0-100.0) fL MCH (25.0-35.0) pg MCHC (31.0-37.0) g/dL RDW (11.5-15.5) % Plt Count (150-450) k/uL MPV Neutrophils % % Lymphocytes % % Monocytes % % Eosinophils % % Basophils % % Neutrophils # (1.3-7.7) k/uL Lymphocytes # (1.0-4.8) k/uL Monocytes # (0-1.0) k/uL Eosinophils # (0-0.7) k/uL Basophils # (0-0.2) k/uL PT (9.0-12.0) sec INR (<1.2) APTT (22.0-30.0) sec Sodium 122 L (137-145) mmol/L Potassium 4.5 (3.5-5.1) mmol/L Chloride 90 L (98-107) mmol/L Carbon Dioxide 29 (22-30) mmol/L Anion Gap 3 mmol/L BUN 10 (7-17) mg/dL Creatinine 0.49 L (0.52-1.04) mg/dL Est GFR (CKD-EPI)AfAm >90 (>60 ml/min/1.73 sqM) Est GFR (CKD-EPI)NonAf >90 (>60 ml/min/1.73 sqM) Glucose 101 H (74-99) mg/dL Plasma Lactic Acid Miguel 1.0 (0.7-2.0) mmol/L Calcium 9.4 (8.4-10.2) mg/dL Magnesium 1.8 (1.6-2.3) mg/dL Total Bilirubin 0.4 (0.2-1.3) mg/dL AST 20 (14-36) U/L ALT 10 (4-34) U/L Alkaline Phosphatase 59 (38-126) U/L Troponin I <0.012 (0.000-0.034) ng/mL NT-Pro-B Natriuret Pep pg/mL Total Protein 6.3 (6.3-8.2) g/dL Albumin 3.8 (3.5-5.0) g/dL Coronavirus (PCR) (Not Detectd) 11/02/20 Range/Units 04:41 WBC (3.8-10.6) k/uL RBC (3.80-5.40) m/uL Hgb (11.4-16.0) gm/dL Hct (34.0-46.0) % MCV (80.0-100.0) fL MCH (25.0-35.0) pg MCHC (31.0-37.0) g/dL RDW (11.5-15.5) % Plt Count (150-450) k/uL MPV Neutrophils % % Lymphocytes % % Monocytes % % Eosinophils % % Basophils % % Neutrophils # (1.3-7.7) k/uL Lymphocytes # (1.0-4.8) k/uL Monocytes # (0-1.0) k/uL Eosinophils # (0-0.7) k/uL Basophils # (0-0.2) k/uL PT (9.0-12.0) sec INR (<1.2) APTT (22.0-30.0) sec Sodium (137-145) mmol/L Potassium (3.5-5.1) mmol/L Chloride (98-107) mmol/L Carbon Dioxide (22-30) mmol/L Anion Gap mmol/L BUN (7-17) mg/dL Creatinine (0.52-1.04) mg/dL Est GFR (CKD-EPI)AfAm (>60 ml/min/1.73 sqM) Est GFR (CKD-EPI)NonAf (>60 ml/min/1.73 sqM) Glucose (74-99) mg/dL Plasma Lactic Acid Miguel (0.7-2.0) mmol/L Calcium (8.4-10.2) mg/dL Magnesium (1.6-2.3) mg/dL Total Bilirubin (0.2-1.3) mg/dL AST (14-36) U/L ALT (4-34) U/L Alkaline Phosphatase (38-126) U/L Troponin I (0.000-0.034) ng/mL NT-Pro-B Natriuret Pep 54 pg/mL Total Protein (6.3-8.2) g/dL Albumin (3.5-5.0) g/dL Coronavirus (PCR) (Not Detectd) - EKG Data -: EKG Interpreted by Me EKG shows normal: sinus rhythm (With PAC, rate 87 bpm), axis (Normal), intervals (Normal), QRS complexes (Normal), ST-T waves (Normal) Rate: normal Disposition Clinical Impression: COPD exacerbation, Hyponatremia Disposition: Left Against Medical Advice Condition: Fair
[2020-11-02] MEDS ORDERED: IPRATROPIUM-ALBUTEROL 3 ML NEB INHALATION STA (04:42)
[2020-11-02 04:51] LABS: Basophils # (A) 0.1 k/uL (0-0.2); Basophils % (A) 1 %; Eosinophils # (A) 0.6 k/uL (0-0.7); Eosinophils % (A) 5 %; HGB 11.5 gm/dL (11.4-16.0); Lymphocytes # (A) 2.3 k/uL (1.0-4.8); Lymphocytes % (A) 18 %; MCH 31.3 pg (25.0-35.0); MCHC 33.8 g/dL (31.0-37.0); MCV 92.8 fL (80.0-100.0); Mean Platelet Volume 6.3; Monocytes # (A) 0.9 k/uL (0-1.0); Monocytes % (A) 7 %; Neutrophils # (A) 8.7 k/uL (1.3-7.7); Neutrophils % (A) 68 %; Platelet Count 554 k/uL (150-450); RBC 3.67 m/uL (3.80-5.40); WBC 12.7 k/uL (3.8-10.6)
--- NOTE | 2020-11-02 05:00 | XR ---
EXAM: XR Chest, 1 View CLINICAL HISTORY: ITS.REASON XR Reason: cough TECHNIQUE: Frontal view of the chest. COMPARISON: No relevant prior studies available. FINDINGS: Lungs: Patient rotated to the right. Mild right basilar atelectasis or scarring. Rest of the lungs appear clear Pleural space: Unremarkable. No pneumothorax. Heart: Unremarkable. No cardiomegaly. Mediastinum: Unremarkable. Bones/joints: Multiple levels of vertebroplasty within the thoracic spine. Right shoulder prosthesis. Advanced degenerative changes and sclerosis of the left glenohumeral joint. Tubes, lines and devices: Spinal cord stimulator. IMPRESSION: No acute findings in the chest.
[2020-11-02 05:01] LABS: INR 0.9 (<1.2); Partial Thromboplastin Time 24.5 sec (22.0-30.0); Prothrombin Time 9.7 sec (9.0-12.0)
[2020-11-02 05:06] LABS: ALT 10 U/L (4-34); AST 20 U/L (14-36); African American GFR (CKD) >90 (>60 ml/min/1.73 sqM); Albumin 3.8 g/dL (3.5-5.0); Alkaline Phosphatase 59 U/L (38-126); Anion Gap 3 mmol/L; Blood Urea Nitrogen 10 mg/dL (7-17); Calcium 9.4 mg/dL (8.4-10.2); Carbon Dioxide 29 mmol/L (22-30); Chloride 90 mmol/L (98-107); Glucose 101 mg/dL (74-99); Magnesium 1.8 mg/dL (1.6-2.3); Non-African American GFR(CKD) >90 (>60 ml/min/1.73 sqM); Potassium 4.5 mmol/L (3.5-5.1); Sodium 122 mmol/L (137-145); Total Bilirubin 0.4 mg/dL (0.2-1.3); Total Protein 6.3 g/dL (6.3-8.2)
[2020-11-02 05:20] VITALS: PULSE 88
[2020-11-02] MEDS ORDERED: predniSONE 20 MG TAB PO STA (05:32)
[2020-11-02] MEDS ORDERED: ALBUTEROL NEBULIZED 2.5 MG/3 ML INHALATION STA (05:32)
[2020-11-02 05:44] VITALS: BP 126/78; RESP 18
[2020-11-02] MEDS ORDERED: SYMBICORT 80-4.5 MCG INHALER INHALATION SCH (08:00)
[2020-11-02] MEDS ORDERED: IPRATROPIUM-ALBUTEROL 3 ML NEB INHALATION SCH (08:00)
[2020-11-02] MEDS ORDERED: predniSONE 20 MG TAB PO SCH (09:00)
== END 2020-11-02 06:52 | disposition left against medical advice (07) ==
LOC: EC 04:05 → UNDOADMOB 05:39 → 4SSUR 05:39 → EC 06:52
DX: J44.1 Chronic obstructive pulmonary disease with (acute) exacerbation (principal); E87.1 Hypo-osmolality and hyponatremia; E11.9 Type 2 diabetes mellitus without complications; K21.9 Gastro-esophageal reflux disease without esophagitis; E78.5 Hyperlipidemia, unspecified; M19.90 Unspecified osteoarthritis, unspecified site; E07.9 Disorder of thyroid, unspecified; Z79.82 Long term (current) use of aspirin; Z79.890 Hormone replacement therapy; Z79.899 Other long term (current) drug therapy; Z79.84 Long term (current) use of oral hypoglycemic drugs; Z88.2 Allergy status to sulfonamides; Z88.8 Allergy status to other drugs, medicaments and biological substances; Z53.29 Procedure and treatment not carried out because of patient's decision for other reasons; Z20.828 Contact with and (suspected) exposure to other viral communicable diseases; Z90.49 Acquired absence of other specified parts of digestive tract; Z90.710 Acquired absence of both cervix and uterus; Z96.611 Presence of right artificial shoulder joint; Z96.651 Presence of right artificial knee joint; Z98.42 Cataract extraction status, left eye; Z98.41 Cataract extraction status, right eye
CPT/HCPCS: 36415; 94640; 93005; 83880; 80053; 83605; 83735; 84484; 85025; 85610; 85730; 87635; 71045; 99285; J7512

== ENCOUNTER 2021-08-11 11:08 | Day surgery (SDC) | payer MEDICARE, OTHER ==
[2021-08-10 11:08] VITALS: BMI 24.8
[~2021-08-11 11:08] MED LIST changes: +ALBUTEROL NEB (CONC) 2.5 MG/0.5 ML INHALATION ONE; +ATROPINE SULFATE 0.4 MG/ML 1 ML VIAL IM ONE; -BUPIVACAINE (PF) 0.25% 30 ML VIAL SQ ONE; -DEXAMETHASONE SOD PHOSPHATE 4 MG/ML 1 ML VIAL IV ONE; -HEPARIN SODIUM,PORCINE 5,000 UNIT/ML 1 ML VIAL ONE; -HEPARIN SODIUM,PORCINE 5,000 UNIT/ML 1 ML VIAL SQ ONE; -HYDROmorphone 0.5 MG/0.5 ML SYRINGE IVP PRN; -LIDOCAINE 1% (10MG/ML) FOR IV START INTRADERMA ONE; -LIDOCAINE 1% INJ 10MG/ML (20 ML MDV) ONE; +LIDOCAINE 2% (PF) 20 MG/ML 5 ML VIAL INHALATION ONE; +LIDOCAINE VISCOUS 300 MG/15 ML CUP MUCOUS MEM ONE; -MIDAZOLAM 2 MG/2 ML VIAL IVP ONE; -MIDAZOLAM 2 MG/2 ML VIAL ONE; -ONDANSETRON 4 MG/2 ML VIAL IVP ONE; -PROPOFOL 10 MG/ML 20 ML VIAL IV ONE; -ROPIVACAINE 5 MG/ML 30 ML VIAL ONE; -SODIUM CHLORIDE 0.9% 1,000 ML IV ONE; -SUCCINYLCHOLINE CHLORIDE 100 MG/5 ML SYR IV ONE; -fentaNYL (PF) 50 MCG/ML 2 ML AMP ONE
[2021-08-11 11:45] VITALS: TEMP 98.2
[2021-08-11 11:53] LABS: Glucose,Whole Blood 99 mg/dL (75-99)
[2021-08-11] MEDS ORDERED: MIDAZOLAM 2 MG/2 ML VIAL ONE (13:02)
[2021-08-11] MEDS ORDERED: fentaNYL (PF) 50 MCG/ML 2 ML AMP ONE (13:02)
[2021-08-11] MEDS ORDERED: LIDOCAINE 1% INJ 10MG/ML (20 ML MDV) ONE (13:02)
[2021-08-11] MEDS ORDERED: KETAMINE 10 MG/ML 20 ML VIAL ONE (13:02)
[2021-08-11] MEDS ORDERED: PROPOFOL 10 MG/ML 20 ML VIAL IV ONE (13:02)
[2021-08-11 14:01] VITALS: BP 107/64; PULSE 79; RESP 18
[2021-08-11 16:22] LABS: Appearance,BF Hazy; Color,BF Colorless; Nucleated Cells, Body Fluid 574 /uL; RBC, Body Fluid 49 /uL
[2021-08-11 16:30] LABS: Mononuclear WBC,Body Fluid 16 %; Polynuclear WBC,Body Fluid 84 %; Total Cells Counted,Body Fluid 100
--- NOTE | 2021-08-11 19:29 | PCN ---
PROCEDURE NOTE PROCEDURE: Bronchoscopy, airway examination, therapeutic lavage, BAL. PREOPERATIVE DIAGNOSIS: Bronchiolitis/pneumonitis. POSTOPERATIVE DIAGNOSIS: Bronchiolitis/pneumonitis. PROCEDURE DESCRIPTION: There was informed consent. There was universal timeout. The patient's procedure was done in room #1 endoscopy suite. Anesthesia provided general anesthesia. The operators were Dr. Brooke and Dr. Marie. After the patient was adequately sedated and being fully monitored, the bronchoscope was inserted through the right nostril. It passed through the right nasopharynx into the oropharynx. The hypopharynx was identified and topicalized. The hypopharyngeal structures, including the anterior commissure, true cords, false cords, arytenoids, piriform sinuses, right and left valleculae and epiglottis all appeared normal. After topicalization of the glottic opening, the bronchoscope was inserted through the glottic opening. The trachea was evaluated. The trachea was normal. There was no tracheal mass or tumor. The tracheal liya was sharp. The right and left mainstem were topicalized. The right upper lobe and its 4 segments, the right middle lobe and its 2 segments, the right lower lobe and its 5 segments, the left upper lobe and its 2 segments, the lingula and its 2 segments, and left lower lobe and its 4 segments all had a similar appearance. There was very mild bronchitis. There were thick secretions noted throughout. They were suctioned with some difficulty. There was some irregularity in the mucosa, but none of the mucosa looked abnormal in a neoplastic sort of way. Secretions were suctioned with the aid of saline lavage. Next the bronchoscope was wedged into the right middle lobe. The BAL took place. Interestingly, the right middle lobe had a very unusual appearance. It was more [place] in appearance, suggesting the possibility of right middle lobe syndrome. The patient tolerated BAL well. The fluid will be sent for analysis, including cytology and microbiology. There was no immediate complication. The patient will be recovered. MMODL / IJN: [id number] /
== END 2021-08-11 14:02 | disposition home or self-care (01) ==
LOC: ORWHC2ENDO 11:08
PROVIDERS: ATTEND Internal Medicine Critical Care Medicine
DX: J21.9 Acute bronchiolitis, unspecified (principal); E78.5 Hyperlipidemia, unspecified; E11.9 Type 2 diabetes mellitus without complications; E07.9 Disorder of thyroid, unspecified; M19.90 Unspecified osteoarthritis, unspecified site; R91.8 Other nonspecific abnormal finding of lung field; Z87.891 Personal history of nicotine dependence; Z79.899 Other long term (current) drug therapy; Z79.890 Hormone replacement therapy; Z86.718 Personal history of other venous thrombosis and embolism; Z88.8 Allergy status to other drugs, medicaments and biological substances; Z88.2 Allergy status to sulfonamides
CPT/HCPCS: 87798 ×3; 87496; 87498; 87529; 88108; 88305; 89050; 87252; 87502; 87634; 87070; 87205; 87116; 87102; 87206; 31624; J2250; J0461; J2001; J3010; J2704

== ENCOUNTER → 2021-09-01 | Outpatient (CLI) | payer MEDICARE, OTHER ==
--- NOTE | 2021-09-01 10:58 | CT ---
EXAMINATION TYPE: CT cervical spine wo con DATE OF EXAM: 09/01/2021 COMPARISON: None HISTORY: cervicalgia CT DLP: 262 mGycm CONTRAST: None CT of the cervical spine is performed in the axial plane at 2 mm thick sections. Reconstructed image s in the coronal, and sagittal plane are reviewed on the computer. No acute fractures are evident. There is upper thoracic kyphosis with exaggeration of lordosis in the lower cervical spine. Some scol iosis is present. There is disc space narrowing appears greater at C5-6 and C6-7. Uncovertebral joint hypertrophy is na rrowing at C5-6 and C6-7 levels. Cervical Vertebral body heights are preserved. There is vertebroplasty of some narrowed T4 height.. No spinal canal stenosis is evident Moderate Foraminal narrowing is present at C5-6 and likely C6-7 due to uncovertebral joint hypertroph y and facet hypertrophy. Mild foraminal narrowing is present at C3-4 and C4-[address] sections through the upper lung mauricio have emphysematous change. IMPRESSIONS: 1. Degenerative disc changes. 2. Mid to lower cervical spine moderate foraminal narrowing.
== END | disposition home or self-care (01) ==
LOC: RADCTMAIN 09:11
PROVIDERS: ATTEND Psychiatry & Neurology Neurology
DX: M50.323 Other cervical disc degeneration at C6-C7 level (principal); M99.71 Connective tissue and disc stenosis of intervertebral foramina of cervical region; M47.812 Spondylosis without myelopathy or radiculopathy, cervical region
CPT/HCPCS: 72125

== ENCOUNTER 2021-10-25 05:52 | Inpatient (IN) | payer MEDICARE, OTHER ==
[2021-10-25 05:57] LABS: Glucose,Whole Blood 158 mg/dL (75-99)
[2021-10-25] MEDS ORDERED: LORazepam 2 MG/ML INJ IV STA (05:59)
[2021-10-25] MEDS ORDERED: levETIRAcetam IV 1,000 MG in SALINE 1 100ML.BAG IVPB STA (06:00)
[2021-10-25] MEDS ORDERED: SODIUM CHLORIDE 0.9% 500 ML 500 ML IV STA (06:08)
[2021-10-25] MEDS ORDERED: SODIUM CHLORIDE 0.9% 1,000 ML IV STA (06:08)
[2021-10-25] MEDS ORDERED: LABETALOL 5 MG/ML VIAL MDV IVP STA (06:08)
--- NOTE | 2021-10-25 06:14 | ED ---
Altered Mental Status HPI - General Stated Complaint: Neuro Time Seen by Provider: 10/25/21 05:53 Source: RN notes reviewed, old records reviewed Mode of arrival: EMS Limitations: altered mental status, physical limitation - History of Present Illness Initial Comments: This is a 76-year-old female to the ER for evaluation of significant altered mental status. Patient Dese with altered mental status and unresponsiveness. Patient was found falling out of bed tonight. Patient has history of CVA. Per family prior to arrival patient is a DO NOT RESUSCITATE. DO NOT INTUBATE no CPR. Patient unable to find history history obtained from patient's chart and EMS MD Complaint: altered mental status, confusion -: unknown Severity: severe Consistency of Symptoms: getting worse Associated Symptoms: seizure (Possible seizure-like activity) Treatments Prior to Arrival: oxygen - Related Data Home Medications Medication Instructions Recorded Confirmed Alendronate Sodium [Fosamax] 70 mg PO SA 12/09/18 10/06/21 Aspirin 81 mg PO DAILY 12/09/18 10/06/21 Calcium Carbonate [Calcium] 600 mg PO DAILY 12/09/18 10/06/21 Cholecalciferol [Vitamin D3] 1,000 unit PO BID 12/09/18 10/06/21 Furosemide [Lasix] 20 mg PO DAILY 12/09/18 10/06/21 Levothyroxine Sodium [Synthroid] 100 mcg PO QAM 12/09/18 10/06/21 Morphine Sulfate [Morphine Sulfate 30 mg PO Q12H 12/09/18 10/06/21 ER] Omeprazole 20 mg PO BID 12/09/18 10/06/21 Sertraline HCl [Zoloft] 25 mg PO 1200 12/09/18 10/06/21 gemfibroziL [Lopid] 600 mg PO AC-BID 12/09/18 10/06/21 metFORMIN HCL [Glucophage] 500 mg PO TID BETWEEN MEALS 12/09/18 10/06/21 tiZANidine [Zanaflex] 4 mg PO BID PRN 04/01/19 10/06/21 Ascorbic Acid [Vitamin C] 500 mg PO DAILY 10/04/20 10/06/21 Ferrous Sulfate [Feosol] 325 mg PO DAILY 10/04/20 10/06/21 Ipratropium-Albuterol Nebulize 3 ml INHALATION TID PRN 10/04/20 10/06/21 [Duoneb 0.5 mg-3 mg/3 ml Soln] Tamsulosin [Flomax] 0.4 mg PO HS 10/04/20 10/06/21 Albuterol Inhaler [Ventolin Hfa 2 puff INHALATION RT-TID PRN 08/10/21 10/06/21 Inhaler] Fluticasone/Umeclidin/Vilanter 1 puff INHALATION DAILY 08/10/21 10/06/21 [Trelegy Ellipta 200-62.5-25] Previous Rx's Medication Instructions Recorded Docusate [Colace] 100 mg PO BID #20 capsule 10/06/20 Ibuprofen [Motrin] 600 mg PO Q6HR PRN #40 tab 10/06/20 Allergies Allergy/AdvReac Type Severity Reaction Status Date / Time [id number]-OaF Reductase Allergy muscle Verified 10/06/21 10:02 Inhibitor cramps [Btfyffn-Tfq-Aja Reductase Inhibitor] Sulfa (Sulfonamide Allergy Rash/Hives,severe Verified 10/06/21 10:02 Antibiotics) diarrhea Review of Systems ROS Statement: Those systems with pertinent positive or pertinent negative responses have been documented in the HPI. ROS Other: All systems not noted in ROS Statement are negative. Past Medical History Past Medical History: Asthma, COPD, Diabetes Mellitus, Deep Vein Thrombosis (DVT), GERD/Reflux, Hyperlipidemia, Osteoarthritis (OA), Pneumonia, Thyroid Disorder Additional Past Medical History / Comment(s): multiple compression fx's, osteop orosis, anemia(gets iron infusions), hiatal hernia, "bladder does not emply all the way", hx graves disease, degenerative disks, "I have had low sodium, high potassium levels," has problems with balance, STATES SHE HAS LOW BLOOD PRESSURE," BOWEL PROLAPSE WITH BLEEDING" History of Any Multi-Drug Resistant Organisms: None Reported Past Surgical History: Appendectomy, Back Surgery, Bowel Resection, Hernia Repair, Hysterectomy, Joint Replacement, Tonsillectomy Additional Past Surgical History / Comment(s): micah eye surgery due to graves disease, rt total shoulder,rt total knee replacement, micah feet procedures, micah carpel tunnel, one toe each foot removed/shortened micah feet, pain stimulator in spine with wires, back surgery with "cement", BILATERAL CATARACT SURGERY Past Anesthesia/Blood Transfusion Reactions: No Reported Reaction Additional Past Anesthesia/Blood Transfusion Reaction / Comment(s): . Smoking Status: Former smoker - Past Family History Father Family Medical History: Cancer Additional Family Medical History / Comment(s): leukemia General Exam - General Exam Comments Initial Comments: NIH 30 GCS 6 protecting airway Limitations: altered mental status General appearance: alert, anxious, lethargic, obtunded Head exam: Present: atraumatic, normocephalic, normal inspection Eye exam: Present: normal appearance, PERRL, EOMI. Absent: scleral icterus, conjunctival injection, periorbital swelling ENT exam: Present: normal exam, mucous membranes moist Neck exam: Present: normal inspection. Absent: tenderness, meningismus, lympha denopathy Respiratory exam: Present: normal lung sounds bilaterally. Absent: respiratory distress, wheezes, rales, rhonchi, stridor Cardiovascular Exam: Present: normal rhythm, tachycardia, normal heart sounds. Absent: systolic murmur, diastolic murmur, rubs, gallop, clicks GI/Abdominal exam: Present: soft, normal bowel sounds. Absent: distended, tenderness, guarding, rebound, rigid Extremities exam: Present: normal inspection, full ROM, normal capillary refill. Absent: tenderness, pedal edema, joint swelling, calf tenderness Back exam: Present: normal inspection Neurological exam: Present: alert, oriented X3, CN II-XII intact Psychiatric exam: Present: normal affect, normal mood Skin exam: Present: warm, dry, intact, normal color. Absent: rash Course Vital Signs 10/25/21 10/25/21 06:09 06:42 Temperature 97.3 F L Pulse Rate 103 H 72 Respiratory 20 19 Rate Blood Pressure 163/82 132/80 O2 Sat by Pulse 78 L 100 Oximetry - Reevaluation(s) Reevaluation #1: 10/25/21 06:12 Records reviewed Reevaluation #2: 10/25/21 06:12 Stroke paged prior to patient's arrival Reevaluation #3: 10/25/21 06:13 Spoke with family who reiterate no CODE STATUS Reevaluation #4: 10/25/21 06:49 Patient currently appears comfortable - Consultations Consultation #1: spoke with Dr. Veloz regarding patient, no intervention Consultation #2: With [facility] agree to admit the patient under hospice care Medical Decision Making - Medical Decision Making 76 female DF for evaluation patient is a no code DO NOT INTUBATE DO NOT RESUSCITATE patient this was decision made much prior to presentation today. Patient presents today with significant CVA secondary to intracranial hemorrhage. Family is at bedside regarding same status. Patient be admitted to our hospital under hospice care - Lab Data Result diagrams: 10/25/21 06:12 10/25/21 06:12 Lab Results 10/25/21 10/25/21 10/25/21 Range/Units 05:54 06:12 06:12 WBC 13.2 H (3.8-10.6) k/uL RBC 3.59 L (3.80-5.40) m/uL Hgb 11.3 L (11.4-16.0) gm/dL Hct 33.6 L (34.0-46.0) % MCV 93.6 (80.0-100.0) fL MCH 31.6 (25.0-35.0) pg MCHC 33.7 (31.0-37.0) g/dL RDW 15.0 (11.5-15.5) % Plt Count 653 H (150-450) k/uL MPV 7.0 Neutrophils % 64 % Lymphocytes % 25 % Monocytes % 6 % Eosinophils % 3 % Basophils % 1 % Neutrophils # 8.4 H (1.3-7.7) k/uL Lymphocytes # 3.3 (1.0-4.8) k/uL Monocytes # 0.8 (0-1.0) k/uL Eosinophils # 0.4 (0-0.7) k/uL Basophils # 0.1 (0-0.2) k/uL Sodium 127 L (137-145) mmol/L Potassium 3.7 (3.5-5.1) mmol/L Chloride 96 L (98-107) mmol/L Carbon Dioxide 21 L (22-30) mmol/L Anion Gap 10 mmol/L BUN 16 (7-17) mg/dL Creatinine 0.53 (0.52-1.04) mg/dL Est GFR (CKD-EPI)AfAm >90 (>60 ml/min/1.73 sqM) Est GFR (CKD-EPI)NonAf >90 (>60 ml/min/1.73 sqM) Glucose 190 H (74-99) mg/dL POC Glucose (mg/dL) 158 H (75-99) mg/dL POC Glu Telephone Quotation Clerk ID Pilo Cisneros Calcium 9.1 (8.4-10.2) mg/dL Total Bilirubin 0.4 (0.2-1.3) mg/dL AST 20 (14-36) U/L ALT 10 (4-34) U/L Alkaline Phosphatase 68 (38-126) U/L Total Protein 6.3 (6.3-8.2) g/dL Albumin 3.5 (3.5-5.0) g/dL - EKG Data -: EKG Interpreted by Me (EKG is sinus rhythm 100 CO 200 QRS 78 QTc 459) - Radiology Data Radiology results: report reviewed (CT brain CTA had neck is significant for large right cerebral hemorrhage), image reviewed Disposition Clinical Impression: Altered mental status, CVA (cerebral vascular accident), Hemorrhagic cerebrovascular accident (CVA), Intracerebral hemorrhage Disposition: ADMITTED IP TO THIS HOSP Condition: Fair Is patient prescribed a controlled substance at d/c from ED?: No Referrals: None,Stated [REFERRING] - 1-2 days
[2021-10-25] MEDS ORDERED: MORPHINE SULFATE 2 MG/ML SYRINGE IVP PRN (06:16)
[2021-10-25] MEDS ORDERED: MORPHINE SULFATE 2 MG/ML SYRINGE IVP STA (06:16)
[2021-10-25] MEDS ORDERED: GLYCOPYRROLATE 0.2 MG/ML 2 ML VIAL IVP STA ×2 (06:20→09:14)
[2021-10-25] MEDS ORDERED: SCOPOLAMINE 1.5MG/72HR PATCH TRANSDERM STA (06:20)
[2021-10-25] MEDS ORDERED: diphenhydrAMINE 50 MG/ML 1 ML VIAL IVP STA (06:21)
--- NOTE | 2021-10-25 06:24 | CT ---
EXAMINATION TYPE: CT brain wo con DATE OF EXAM: 10/25/2021 COMPARISON: None HISTORY: Code stroke AMS CT DLP: 1437.9 mGycm Automated exposure control for dose reduction was used. Images of the brain obtained without contrast. There is large area of hypoattenuation involving the right cerebral hemisphere. This is centered at t he internal capsule and measures approximately 7.7 x 4.4 cm. There is also acute hemorrhage in the ri ght lateral ventricle and in the third ventricle. There is slight midline shift to the left side of 5 mm. Exam limited slightly by motion. There is hemorrhage also in the fourth ventricle. Calvarium is intact. IMPRESSION: Large acute right cerebral hemisphere hemorrhage that is probably hemorrhagic infarct of the right in ternal capsule. There is extensive hemorrhage in the right lateral ventricle and third ventricle and fourth ventricle.
--- NOTE | 2021-10-25 06:31 | CT ---
EXAMINATION TYPE: CT angio head neck DATE OF EXAM: 10/25/2021 COMPARISON: None HISTORY: Code stroke AMS CT DLP: 1437.9 mGycm Automated exposure control for dose reduction was used. CONTRAST: Performed with IV Contrast, patient injected with 65 mL of Isovue 370. There are 3-D post processed images. Images obtained from the aortic arch to the vertex of the brain with IV contrast. There is normal branching pattern of the great vessels on the aortic arch. There is arterial flow in both subclavian arteries. Exam limited somewhat by motion. There is apparently wide patency of the ca rotid artery bifurcations. There is arterial flow in the common internal and external carotid arterie s bilaterally. There is arterial flow in both vertebral arteries. There is no evidence of carotid or vertebral artery aneurysm or dissection. There is arterial flow in the vertebrobasilar artery system. There is arterial flow in the anterior m iddle and posterior cerebral arteries. There is mass effect upon the right middle cerebral artery whi ch is displaced anteriorly. By the large hemorrhage in the right cerebral hemisphere. There is midlin e shift to the left side at the third ventricle and lateral ventricles. There is no evidence of hemod ynamic arterial stenosis. I see no aneurysm or neovascularity. There is some enhancement of the venou s sinuses in the posterior fossa. IMPRESSION: Mass effect related to large hemorrhage in the right cerebral hemisphere. No hemodynamic stenosis. No significant angiographic abnormality of the neck. No evidence of intracranial aneurysm. Exam was discussed with emergency room attending staff at 1:30 AM.
[2021-10-25 06:32] LABS: Basophils # (A) 0.1 k/uL (0-0.2); Basophils % (A) 1 %; Eosinophils # (A) 0.4 k/uL (0-0.7); Eosinophils % (A) 3 %; HCT 33.6 % (34.0-46.0); HGB 11.3 gm/dL (11.4-16.0); Lymphocytes # (A) 3.3 k/uL (1.0-4.8); Lymphocytes % (A) 25 %; MCH 31.6 pg (25.0-35.0); MCHC 33.7 g/dL (31.0-37.0); MCV 93.6 fL (80.0-100.0); Monocytes # (A) 0.8 k/uL (0-1.0); Monocytes % (A) 6 %; Neutrophils # (A) 8.4 k/uL (1.3-7.7); Neutrophils % (A) 64 %; Platelet Count 653 k/uL (150-450); RBC 3.59 m/uL (3.80-5.40); WBC 13.2 k/uL (3.8-10.6)
[2021-10-25] MEDS ORDERED: NALOXONE 0.4 MG/ML 1 ML VIAL IV PRN (06:32)
[2021-10-25] MEDS ORDERED: LORazepam 2 MG/ML INJ IV PRN (06:32)
[2021-10-25] MEDS ORDERED: ONDANSETRON 4 MG/2 ML VIAL IVP PRN (06:32)
[2021-10-25 06:40] LABS: ALT 10 U/L (4-34); AST 20 U/L (14-36); African American GFR (CKD) >90 (>60 ml/min/1.73 sqM); Albumin 3.5 g/dL (3.5-5.0); Alkaline Phosphatase 68 U/L (38-126); Anion Gap 10 mmol/L; Blood Urea Nitrogen 16 mg/dL (7-17); Calcium 9.1 mg/dL (8.4-10.2); Carbon Dioxide 21 mmol/L (22-30); Chloride 96 mmol/L (98-107); Glucose 190 mg/dL (74-99); Non-African American GFR(CKD) >90 (>60 ml/min/1.73 sqM); Potassium 3.7 mmol/L (3.5-5.1); Sodium 127 mmol/L (137-145); Total Bilirubin 0.4 mg/dL (0.2-1.3); Total Protein 6.3 g/dL (6.3-8.2)
[2021-10-25] MEDS ORDERED: SODIUM CHLORIDE 0.9% 1,000 ML IV SCH (06:45)
[2021-10-25 06:54] LABS: INR 0.9 (<1.2); Prothrombin Time 10.1 sec (9.0-12.0)
[2021-10-25 06:55] LABS: Partial Thromboplastin Time 20.4 sec (22.0-30.0)
[2021-10-25 08:37] VITALS: BP 138/84; PULSE 78; RESP 18; TEMP 98.7
--- NOTE | 2021-10-26 12:29 | P.HPIM ---
History of Present Illness H&P Date: 10/25/21 This is a 76-year-old female who was at home and lives with her daughter and found with altered mental status and difficulty with the left side of the body as it was flaccid and EMS was called and brought to the emergency department for further evaluation. Upon ED presentation patient was completely altered and unresponsive with the possibility of a stroke in the differential. Per daughter at the bedside patient has been extremely weak and falling out of bed more often and denies any head injury or trauma stating that she has been attempting to sit at the side of the bed or chair and sliding down into a falling position with no had involvement. Upon arrival to the ER CT of the head was done showing a large acute right cerebral hemisphere hemorrhage that is probably a hemorrhagic infa rct of the right internal capsule with extensive hemorrhage in the right lateral ventricle and third ventricle and fourth ventricle measuring approximately 7.7 x 4.[address] of the [address] was done showing a mass effect related to large hemorrhage in the right cerebral hemisphere with no hemodynamic stenosis and no significant angiographic abnormality of the neck with no evidence of intracrani al aneurysm. Family had decided prior to arrival to the emergency department that they wanted patient to be a no code in [facility] was contacted and to meet with the family in the ER. Patient was known to have a past medical history of asthma, COPD, diabetes mellitus, DVT, GERD, hyperlipidemia, osteoarthritis, thyroid disorder. Daughter at the bedside who is her caregiver denies any past medical history of TIA or CVAs. Hemoglobin was 11.3, a blood count 13.2, platelets 653, INR 0.9, sodium 127, potassium 3.7, creatinine 0.53, glucose 190, troponin 0.036. EKG showed a sinus rhythm with occasional premature ventricular complexes with ST and T-wave abnormality considering inferior ischemia with a heart rate of 100 bpm. Review of Systems ROS unobtainable: due to mental status Past Medical History Past Medical History: Asthma, COPD, Diabetes Mellitus, Deep Vein Thrombosis (DVT), GERD/Reflux, Hyperlipidemia, Osteoarthritis (OA), Pneumonia, Thyroid Disorder Additional Past Medical History / Comment(s): multiple compression fx's, osteoporosis, anemia(gets iron infusions), hiatal hernia, "bladder does not emply all the way", hx graves disease, degenerative disks, "I have had low sodium, high potassium levels," has problems with balance, STATES SHE HAS LOW BLOOD PRESSURE," BOWEL PROLAPSE WITH BLEEDING" History of Any Multi-Drug Resistant Organisms: None Reported Past Surgical History: Appendectomy, Back Surgery, Bowel Resection, Hernia Repair, Hysterectomy, Joint Replacement, Tonsillectomy Additional Past Surgical History / Comment(s): micah eye surgery due to graves disease, rt total shoulder,rt total knee replacement, micah feet procedures, micah carpel tunnel, one toe each foot removed/shortened micah feet, pain stimulator in spine with wires, back surgery with "cement", BILATERAL CATARACT SURGERY Past Anesthesia/Blood Transfusion Reactions: No Reported Reaction Additional Past Anesthesia/Blood Transfusion Reaction / Comment(s): . Smoking Status: Former smoker - Past Family History Father Family Medical History: Cancer Additional Family Medical History / Comment(s): leukemia Medications and Allergies Home Medications Medication Instructions Recorded Confirmed Type Alendronate Sodium [Fosamax] 70 mg PO SA 12/09/18 10/25/21 History Furosemide [Lasix] 20 mg PO DAILY 12/09/18 10/25/21 History Levothyroxine Sodium [Synthroid] 100 mcg PO DAILY 12/09/18 10/25/21 History Morphine Sulfate [Morphine Sulfate 30 mg PO Q12H 12/09/18 10/25/21 History ER] Omeprazole 20 mg PO DAILY 12/09/18 10/25/21 History Sertraline HCl [Zoloft] 25 mg PO DAILY 12/09/18 10/25/21 History gemfibroziL [Lopid] 600 mg PO AC-BID 12/09/18 10/25/21 History metFORMIN HCL [Glucophage] 500 mg PO TID 12/09/18 10/25/21 History tiZANidine [Zanaflex] 4 mg PO TID PRN 04/01/19 10/25/21 History Tamsulosin [Flomax] 0.4 mg PO DAILY 10/04/20 10/25/21 History Albuterol Inhaler [Ventolin Hfa 2 puff INHALATION RT-Q6H PRN 08/10/21 10/25/21 History Inhaler] Fluticasone/Umeclidin/Vilanter 1 puff INHALATION RT-DAILY 08/10/21 10/25/21 History [Trelegy Ellipta 200-62.5-25] HYDROcodone/APAP 7.5-325MG [[place] 1 tab PO DAILY PRN 10/25/21 10/25/21 History 7.5-325] Meloxicam [Mobic] 15 mg PO DAILY 10/25/21 10/25/21 History Montelukast [Singulair] 10 mg PO HS 10/25/21 10/25/21 History methylPREDNISolone [Medrol Dose See Taper PO DAILY 10/25/21 10/25/21 History Pack] Allergies Allergy/AdvReac Type Severity Reaction Status Date / Time Cncwzqr-MKP-HcH Reductase Allergy muscle Verified 10/25/21 10:02 Inhibitor cramps [Wikreqm-Nvz-Mtu Reductase Inhibitor] Sulfa (Sulfonamide Allergy Rash/Hives,severe Verified 10/25/21 10:02 Antibiotics) diarrhea Physical Exam Vitals: Vital Signs Temp Pulse Resp BP Pulse Ox 10/25/21 13:03 72 131/67 96 10/25/21 10:00 98 F 74 16 135/85 100 Intake and Output 10/24/21 10/25/21 10/25/21 22:59 06:59 14:59 Other: Weight 52.1 kg Gen: This is a 76-year-old female, unresponsive, obtunded and appears in no acute distress HEENT: Head is atraumatic, normocephalic. Pupils equal, round. Sclerae is anicteric. Oral Mucosa is dry NECK: Supple. No JVD. No lymphadenopathy. No thyromegaly. LUNGS: Diminished breath sounds bilaterally with some scattered rhonchi and crac kles noted throughout, tachypneic. No intercostal retractions. HEART: Regular rate and rhythm. No murmur. ABDOMEN: Soft. Bowel sounds are present. No masses. No tenderness. EXTREMITIES: No pedal edema. No calf tenderness. 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 as noted on CT with mass effect and midline shift to the left at the third ventricle and lateral ventricles Elevated troponin, indeterminate History of COPD, not in acute exacerbation Diabetes mellitus History of DVT, not on anticoagulant X line history of GERD Hyperlipidemia Osteoarthritis Thyroid disorder Frequent falls most recently Anxiety, depression Former history of tobacco use No code Plan: [facility] was consulted per family request given the extremely poor prognosis after CT findings of a large acute right cerebral hemispheric infarct and hemorrhage with midline shift. [facility] met with the family and has signed the paperwork and patient will be made inpatient GIP with comfort measures only. Family is agreeable with this plan and multiple family members at the bedside. She is being given Ativan and started on morphine drip. Will continue to monitor closely. Time with Patient: Greater than 30 Past Medical History Past Medical History: Asthma, COPD, Diabetes Mellitus, Deep Vein Thrombosis (DVT), GERD/Reflux, Hyperlipidemia, Osteoarthritis (OA), Pneumonia, Thyroid Disorder Additional Past Medical History / Comment(s): multiple compression fx's, osteoporosis, anemia(gets iron infusions), hiatal hernia, "bladder does not emply all the way", hx graves disease, degenerative disks, "I have had low sodium, high potassium levels," has problems with balance, STATES SHE HAS LOW BLOOD PRESSURE," BOWEL PROLAPSE WITH BLEEDING" History of Any Multi-Drug Resistant Organisms: None Reported Past Surgical History: Appendectomy, Back Surgery, Bowel Resection, Hernia Repair, Hysterectomy, Joint Replacement, Tonsillectomy Additional Past Surgical History / Comment(s): micah eye surgery due to graves disease, rt total shoulder,rt total knee replacement, micah feet procedures, micah carpel tunnel, one toe each foot removed/shortened micah feet, pain stimulator in spine with wires, back surgery with "cement", BILATERAL CATARACT SURGERY Past Anesthesia/Blood Transfusion Reactions: No Reported Reaction Additional Past Anesthesia/Blood Transfusion Reaction / Comment(s): . Smoking Status: Former smoker - Past Family History Father Family Medical History: Cancer Additional Family Medical History / Comment(s): leukemia Medications and Allergies Home Medications Medication Instructions Recorded Confirmed Type Alendronate Sodium [Fosamax] 70 mg PO SA 12/09/18 10/25/21 History Furosemide [Lasix] 20 mg PO DAILY 12/09/18 10/25/21 History Levothyroxine Sodium [Synthroid] 100 mcg PO DAILY 12/09/18 10/25/21 History Morphine Sulfate [Morphine Sulfate 30 mg PO Q12H 12/09/18 10/25/21 History ER] Omeprazole 20 mg PO DAILY 12/09/18 10/25/21 History Sertraline HCl [Zoloft] 25 mg PO DAILY 12/09/18 10/25/21 History gemfibroziL [Lopid] 600 mg PO AC-BID 12/09/18 10/25/21 History metFORMIN HCL [Glucophage] 500 mg PO TID 12/09/18 10/25/21 History tiZANidine [Zanaflex] 4 mg PO TID PRN 04/01/19 10/25/21 History Tamsulosin [Flomax] 0.4 mg PO DAILY 10/04/20 10/25/21 History Albuterol Inhaler [Ventolin Hfa 2 puff INHALATION RT-Q6H PRN 08/10/21 10/25/21 History Inhaler] Fluticasone/Umeclidin/Vilanter 1 puff INHALATION RT-DAILY 08/10/21 10/25/21 History [Trelegy Ellipta 200-62.5-25] HYDROcodone/APAP 7.5-325MG [[place] 1 tab PO DAILY PRN 10/25/21 10/25/21 History 7.5-325] Meloxicam [Mobic] 15 mg PO DAILY 10/25/21 10/25/21 History Montelukast [Singulair] 10 mg PO HS 10/25/21 10/25/21 History methylPREDNISolone [Medrol Dose See Taper PO DAILY 10/25/21 10/25/21 History Pack] Allergies Allergy/AdvReac Type Severity Reaction Status Date / Time Dksuacx-SDC-XdE Reductase Allergy muscle Verified 10/25/21 10:02 Inhibitor cramps [Ltgdoif-Soy-Wbw Reductase Inhibitor] Sulfa (Sulfonamide Allergy Rash/Hives,severe Verified 10/25/21 10:02 Antibiotics) diarrhea Physical Exam Vitals: Vital Signs Temp Pulse Resp BP Pulse Ox 10/25/21 08:35 98.7 F 78 18 138/84 98 10/25/21 06:58 82 19 137/75 100 10/25/21 06:42 72 19 132/80 100 10/25/21 06:09 97.3 F L 103 H 20 163/82 78 L Intake and Output 10/24/21 10/25/21 10/25/21 22:59 06:59 14:59 Other: Weight 52.163 kg Results CBC & Chem 7: 10/25/21 06:12 10/25/21 06:12 Labs: Abnormal Lab Results - Last 24 Hours (Table) 10/25/21 10/25/21 10/25/21 Range/Units 05:54 06:12 06:12 WBC 13.2 H (3.8-10.6) k/uL RBC 3.59 L (3.80-5.40) m/uL Hgb 11.3 L (11.4-16.0) gm/dL Hct 33.6 L (34.0-46.0) % Plt Count 653 H (150-450) k/uL Neutrophils # 8.4 H (1.3-7.7) k/uL APTT 20.4 L (22.0-30.0) sec Sodium (137-145) mmol/L Chloride (98-107) mmol/L Carbon Dioxide (22-30) mmol/L Glucose (74-99) mg/dL POC Glucose (mg/dL) 158 H (75-99) mg/dL Troponin I (0.000-0.034) ng/mL 10/25/21 10/25/21 Range/Units 06:12 06:12 WBC (3.8-10.6) k/uL RBC (3.80-5.40) m/uL Hgb (11.4-16.0) gm/dL Hct (34.0-46.0) % Plt Count (150-450) k/uL Neutrophils # (1.3-7.7) k/uL APTT (22.0-30.0) sec Sodium 127 L (137-145) mmol/L Chloride 96 L (98-107) mmol/L Carbon Dioxide 21 L (22-30) mmol/L Glucose 190 H (74-99) mg/dL POC Glucose (mg/dL) (75-99) mg/dL Troponin I 0.036 H* (0.000-0.034) ng/mL
--- NOTE | 2021-10-26 12:33 | P.DS ---
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 as noted on CT with mass effect and midline shift to the left at the third ventricle and lateral ventricles Elevated troponin, indeterminate History of COPD, not in acute exacerbation Diabetes mellitus History of DVT, not on anticoagulant X line history of GERD Hyperlipidemia Osteoarthritis Thyroid disorder Frequent falls most recently Anxiety, depression Former history of tobacco use No code Preliminary cause of Large acute right cerebral hemisphere hemorrhagic infarct Discharge disposition Patient has on 10/25/2021 under [facility] inpatient services and was comfort measures only per family request. Patient sometime around 5:30 PM. Please refer to previous dictation for further HPI. Patient Condition at Discharge: Poor Plan - Discharge Summary New Discharge Prescriptions: No Action Alendronate Sodium [Fosamax] 70 mg PO SA Levothyroxine Sodium [Synthroid] 100 mcg PO DAILY metFORMIN HCL [Glucophage] 500 mg PO TID Omeprazole 20 mg PO DAILY Furosemide [Lasix] 20 mg PO DAILY Sertraline HCl [Zoloft] 25 mg PO DAILY Morphine Sulfate [Morphine Sulfate ER] 30 mg PO Q12H gemfibroziL [Lopid] 600 mg PO AC-BID tiZANidine [Zanaflex] 4 mg PO TID PRN PRN Reason: Muscle Spasm Tamsulosin [Flomax] 0.4 mg PO DAILY Albuterol Inhaler [Ventolin Hfa Inhaler] 2 puff INHALATION RT-Q6H PRN PRN Reason: Shortness Of Breath Fluticasone/Umeclidin/Vilanter [Trelegy Ellipta 200-62.5-25] 1 puff IN HALATION RT-DAILY HYDROcodone/APAP 7.5-325MG [[place] 7.5-325] 1 tab PO DAILY PRN PRN Reason: Pain methylPREDNISolone [Medrol Dose Pack] See Taper PO DAILY Meloxicam [Mobic] 15 mg PO DAILY Montelukast [Singulair] 10 mg PO HS Discharge Medication List Alendronate Sodium [Fosamax] 70 mg PO SA 12/09/18 [History] Furosemide [Lasix] 20 mg PO DAILY 12/09/18 [History] Levothyroxine Sodium [Synthroid] 100 mcg PO DAILY 12/09/18 [History] Morphine Sulfate [Morphine Sulfate ER] 30 mg PO Q12H 12/09/18 [History] Omeprazole 20 mg PO DAILY 12/09/18 [History] Sertraline HCl [Zoloft] 25 mg PO DAILY 12/09/18 [History] gemfibroziL [Lopid] 600 mg PO AC-BID 12/09/18 [History] metFORMIN HCL [Glucophage] 500 mg PO TID 12/09/18 [History] tiZANidine [Zanaflex] 4 mg PO TID PRN 04/01/19 [History] Tamsulosin [Flomax] 0.4 mg PO DAILY 10/04/20 [History] Albuterol Inhaler [Ventolin Hfa Inhaler] 2 puff INHALATION RT-Q6H PRN 08/10/21 [History] Fluticasone/Umeclidin/Vilanter [Trelegy Ellipta 200-62.5-25] 1 puff INHALATION RT-DAILY 08/10/21 [History] HYDROcodone/APAP 7.5-325MG [[place] 7.5-325] 1 tab PO DAILY PRN 10/25/21 [History] Meloxicam [Mobic] 15 mg PO DAILY 10/25/21 [History] Montelukast [Singulair] 10 mg PO HS 10/25/21 [History] methylPREDNISolone [Medrol Dose Pack] See Taper PO DAILY 10/25/21 [History] Follow up Appointment(s)/Referral(s): None,Stated [REFERRING] - 1-2 days Discharge [facility]position: [facility]
--- NOTE | 2021-10-26 12:37 | P.DS ---
Providers Date of admission: 10/25/21 06:40 Expected date of discharge: 10/25/21 Attending physician: Edgardo Estevez Primary care physician: Jolene Amaya [facility] Course: Final diagnosis Large acute right cerebral hemisphere hemorrhage most likely hemorrhagic infarct of the right internal capsule as noted on CT with mass effect and midline shift to the left at the third ventricle and lateral ventricles Elevated troponin, indeterminate History of COPD, not in acute exacerbation Diabetes mellitus History of DVT, not on anticoagulant X line history of GERD Hyperlipidemia Osteoarthritis Thyroid disorder Frequent falls most recently Anxiety, depression Former history of tobacco use No code Preliminary cause of 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 Patient sometime around 5:30 PM. Please refer to previous dictation for further HPI. Patient Condition at Discharge: Poor Plan - Discharge Summary New Discharge Prescriptions: No Action Alendronate Sodium [Fosamax] 70 mg PO SA Levothyroxine Sodium [Synthroid] 100 mcg PO DAILY metFORMIN HCL [Glucophage] 500 mg PO TID Omeprazole 20 mg PO DAILY Furosemide [Lasix] 20 mg PO DAILY Sertraline HCl [Zoloft] 25 mg PO DAILY Morphine Sulfate [Morphine Sulfate ER] 30 mg PO Q12H gemfibroziL [Lopid] 600 mg PO AC-BID tiZANidine [Zanaflex] 4 mg PO TID PRN PRN Reason: Muscle Spasm Tamsulosin [Flomax] 0.4 mg PO DAILY Albuterol Inhaler [Ventolin Hfa Inhaler] 2 puff INHALATION RT-Q6H PRN PRN Reason: Shortness Of Breath Fluticasone/Umeclidin/Vilanter [Trelegy Ellipta 200-62.5-25] 1 puff I NHALATION RT-DAILY HYDROcodone/APAP 7.5-325MG [[place] 7.5-325] 1 tab PO DAILY PRN PRN Reason: Pain methylPREDNISolone [Medrol Dose Pack] See Taper PO DAILY Meloxicam [Mobic] 15 mg PO DAILY Montelukast [Singulair] 10 mg PO HS Discharge Medication List Alendronate Sodium [Fosamax] 70 mg PO SA 12/09/18 [History] Furosemide [Lasix] 20 mg PO DAILY 12/09/18 [History] Levothyroxine Sodium [Synthroid] 100 mcg PO DAILY 12/09/18 [History] Morphine Sulfate [Morphine Sulfate ER] 30 mg PO Q12H 12/09/18 [History] Omeprazole 20 mg PO DAILY 12/09/18 [History] Sertraline HCl [Zoloft] 25 mg PO DAILY 12/09/18 [History] gemfibroziL [Lopid] 600 mg PO AC-BID 12/09/18 [History] metFORMIN HCL [Glucophage] 500 mg PO TID 12/09/18 [History] tiZANidine [Zanaflex] 4 mg PO TID PRN 04/01/19 [History] Tamsulosin [Flomax] 0.4 mg PO DAILY 10/04/20 [History] Albuterol Inhaler [Ventolin Hfa Inhaler] 2 puff INHALATION RT-Q6H PRN 08/10/21 [History] Fluticasone/Umeclidin/Vilanter [Trelegy Ellipta 200-62.5-25] 1 puff INHALATION RT-DAILY 08/10/21 [History] HYDROcodone/APAP 7.5-325MG [[place] 7.5-325] 1 tab PO DAILY PRN 10/25/21 [History] Meloxicam [Mobic] 15 mg PO DAILY 10/25/21 [History] Montelukast [Singulair] 10 mg PO HS 10/25/21 [History] methylPREDNISolone [Medrol Dose Pack] See Taper PO DAILY 10/25/21 [History] Follow up Appointment(s)/Referral(s): None,Stated [REFERRING] - 1-2 days Discharge Disposition: [facility] TO [facility]
== END 2021-10-25 11:41 | disposition expired | DRG 951 ==
LOC: EC 05:52 → SUPCPDRO 05:52 → 4SSUR 06:40
PROVIDERS: ADMIT Internal Medicine; ATTEND Internal Medicine
DX: Z51.5 Encounter for palliative care (principal); I61.5 Nontraumatic intracerebral hemorrhage, intraventricular; E07.9 Disorder of thyroid, unspecified; E11.9 Type 2 diabetes mellitus without complications; E78.5 Hyperlipidemia, unspecified; F32.A Depression, unspecified; Z66 Do not resuscitate; R29.6 Repeated falls; K21.9 Gastro-esophageal reflux disease without esophagitis; F41.9 Anxiety disorder, unspecified; I49.3 Ventricular premature depolarization; J44.9 Chronic obstructive pulmonary disease, unspecified; M19.90 Unspecified osteoarthritis, unspecified site; M81.0 Age-related osteoporosis without current pathological fracture; R56.9 Unspecified convulsions; Z87.01 Personal history of pneumonia (recurrent); W06.XXXA Fall from bed, initial encounter; Z79.1 Long term (current) use of non-steroidal anti-inflammatories (NSAID); Z79.82 Long term (current) use of aspirin; Z79.83 Long term (current) use of bisphosphonates; Z79.84 Long term (current) use of oral hypoglycemic drugs; Z79.890 Hormone replacement therapy; Z79.899 Other long term (current) drug therapy; Z86.718 Personal history of other venous thrombosis and embolism; Z86.73 Personal history of transient ischemic attack (TIA), and cerebral infarction without residual deficits; Z87.891 Personal history of nicotine dependence; Z90.710 Acquired absence of both cervix and uterus; Z96.651 Presence of right artificial knee joint; Z87.19 Personal history of other diseases of the digestive system
CPT/HCPCS: 36415; 70450; 70496; 70498; 80053; 84484; 85025; 85610; 85730; 93005; 96365; 96375; 99285

== ENCOUNTER 2021-10-25 09:27 | Inpatient (IN) | payer MEDICAID, MEDICARE, OTHER ==
[2021-10-25] MEDS ORDERED: ACETAMINOPHEN SUPPOSITORY 650 MG SUPP RECTAL PRN (10:07)
[2021-10-25] MEDS ORDERED: MORPHINE SULFATE 2 MG/ML SYRINGE IV PRN (10:07)
[2021-10-25] MEDS ORDERED: GLYCOPYRROLATE 0.2 MG/ML 2 ML VIAL IVP PRN (10:07)
[2021-10-25] MEDS ORDERED: LORazepam 2 MG/ML INJ IV PRN (10:07)
[2021-10-25] MEDS ORDERED: ONDANSETRON 4 MG/2 ML VIAL IVP PRN (10:07)
[2021-10-25] MEDS ORDERED: MORPHINE SULFATE (100 MG/2 ML) 100 MG in SODIUM CHLORIDE 0.9% 100 ML IV SCH (10:15)
[2021-10-25 11:48] VITALS: TEMP 98
[2021-10-25 13:04] VITALS: BP 131/67
--- NOTE | 2021-10-25 14:06 | P.HPIM ---
History of Present Illness H&P Date: 10/25/21 This is a 76-year-old female who was at home and lives with her daughter and found with altered mental status and difficulty with the left side of the body as it was flaccid and EMS was called and brought to the emergency department for further evaluation. Upon ED presentation patient was completely altered and unresponsive with the possibility of a stroke in the differential. Per daughter at the bedside patient has been extremely weak and falling out of bed more often and denies any head injury or trauma stating that she has been attempting to sit at the side of the bed or chair and sliding down into a falling position with no had involvement. Upon arrival to the ER CT of the head was done showing a large acute right cerebral hemisphere hemorrhage that is probably a hemorrhagic infarct of the right internal capsule with extensive hemorrhage in the right lateral ventricle and third ventricle and fourth ventricle measuring approximately 7.7 x 4.[address] was done showing a mass effect related to large hemorrhage in the right cerebral hemisphere with no hemodynamic stenosis and no significant angiographic abnormality of the neck with no evidence of intracranial aneurysm. Family had decided prior to arrival to the emergency department that they wanted patient to be a no code in [facility] hospice was contacted and to meet with the family in the ER. Patient was known to have a past medical history of asthma, COPD, diabetes mellitus, DVT, GERD, hyperlipidemia, osteoarthritis, thyroid disorder. Daughter at the bedside who is her caregiver denies any past medical history of TIA or CVAs. Hemoglobin was 11.3, a blood count 13.2, platelets 653, INR 0.9, sodium 127, potassium 3.7, creatinine 0.53, glucose 190, troponin 0.036. EKG showed a sinus rhythm with occasional premature ventricular complexes with ST and T-wave abnormality considering inferior ischemia with a heart rate of 100 bpm. Review of Systems ROS unobtainable: due to mental status Past Medical History Past Medical History: Asthma, COPD, Diabetes Mellitus, Deep Vein Thrombosis (DVT), GERD/Reflux, Hyperlipidemia, Osteoarthritis (OA), Pneumonia, Thyroid Disorder Additional Past Medical History / Comment(s): multiple compression fx's, osteoporosis, anemia(gets iron infusions), hiatal hernia, "bladder does not emply all the way", hx graves disease, degenerative disks, "I have had low sodium, high potassium levels," has problems with balance, STATES SHE HAS LOW BLOOD PRESSURE," BOWEL PROLAPSE WITH BLEEDING" History of Any Multi-Drug Resistant Organisms: None Reported Past Surgical History: Appendectomy, Back Surgery, Bowel Resection, Hernia Repair, Hysterectomy, Joint Replacement, Tonsillectomy Additional Past Surgical History / Comment(s): micah eye surgery due to graves disease, rt total shoulder,rt total knee replacement, micah feet procedures, micah carpel tunnel, one toe each foot removed/shortened micah feet, pain stimulator in spine with wires, back surgery with "cement", BILATERAL CATARACT SURGERY Past Anesthesia/Blood Transfusion Reactions: No Reported Reaction Additional Past Anesthesia/Blood Transfusion Reaction / Comment(s): . Smoking Status: Former smoker - Past Family History Father Family Medical History: Cancer Additional Family Medical History / Comment(s): leukemia Medications and Allergies Home Medications Medication Instructions Recorded Confirmed Type Alendronate Sodium [Fosamax] 70 mg PO SA 12/09/18 10/25/21 History Furosemide [Lasix] 20 mg PO DAILY 12/09/18 10/25/21 History Levothyroxine Sodium [Synthroid] 100 mcg PO DAILY 12/09/18 10/25/21 History Morphine Sulfate [Morphine Sulfate 30 mg PO Q12H 12/09/18 10/25/21 History ER] Omeprazole 20 mg PO DAILY 12/09/18 10/25/21 History Sertraline HCl [Zoloft] 25 mg PO DAILY 12/09/18 10/25/21 History gemfibroziL [Lopid] 600 mg PO AC-BID 12/09/18 10/25/21 History metFORMIN HCL [Glucophage] 500 mg PO TID 12/09/18 10/25/21 History tiZANidine [Zanaflex] 4 mg PO TID PRN 04/01/19 10/25/21 History Tamsulosin [Flomax] 0.4 mg PO DAILY 10/04/20 10/25/21 History Albuterol Inhaler [Ventolin Hfa 2 puff INHALATION RT-Q6H PRN 08/10/21 10/25/21 History Inhaler] Fluticasone/Umeclidin/Vilanter 1 puff INHALATION RT-DAILY 08/10/21 10/25/21 History [Trelegy Ellipta 200-62.5-25] HYDROcodone/APAP 7.5-325MG [[place] 1 tab PO DAILY PRN 10/25/21 10/25/21 History 7.5-325] Meloxicam [Mobic] 15 mg PO DAILY 10/25/21 10/25/21 History Montelukast [Singulair] 10 mg PO HS 10/25/21 10/25/21 History methylPREDNISolone [Medrol Dose See Taper PO DAILY 10/25/21 10/25/21 History Pack] Allergies Allergy/AdvReac Type Severity Reaction Status Date / Time Cielaqx-EGJ-DnE Reductase Allergy muscle Verified 10/25/21 10:02 Inhibitor cramps [Byptpjd-Kxf-Pme Reductase Inhibitor] Sulfa (Sulfonamide Allergy Rash/Hives,severe Verified 10/25/21 10:02 Antibiotics) diarrhea Physical Exam Vitals: Vital Signs Temp Pulse Resp BP Pulse Ox 10/25/21 13:03 72 131/67 96 10/25/21 10:00 98 F 74 16 135/85 100 Intake and Output 10/24/21 10/25/21 10/25/21 22:59 06:59 14:59 Other: Weight 52.1 kg Gen: This is a 76-year-old female, unresponsive, obtunded and appears in no acute distress HEENT: Head is atraumatic, normocephalic. Pupils equal, round. Sclerae is anicteric. Oral Mucosa is dry NECK: Supple. No JVD. No lymphadenopathy. No thyromegaly. LUNGS: Diminished breath sounds bilaterally with some scattered rhonchi and crackles noted throughout, tachypneic. No intercostal retractions. HEART: Regular rate and rhythm. No murmur. ABDOMEN: Soft. Bowel sounds are present. No masses. No tenderness. EXTREMITIES: No pedal edema. No calf tenderness. 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 [facility] met with the family and has signed the paperwork and patient will be made inpatient GIP with comfort measures only. Family is agreeable with this plan and multiple family members at the bedside. She is being given Ativan and started on morphine drip. Will continue to monitor closely. Time with Patient: Greater than 30
[2021-10-25] MEDS: ATROPINE OPHTH SOLN 1% 5ML BTL SUBLINGUAL PRN ×2 (17:35→17:36)
[2021-10-25 17:37] VITALS: PULSE 144; RESP 28
[2021-10-28] MEDS ORDERED: SCOPOLAMINE 1.5MG/72HR PATCH TRANSDERM SCH (07:00)
== END 2021-10-25 19:58 | disposition expired | DRG 951 ==
LOC: EC 09:27 → 4SSUR 09:34
PROVIDERS: ADMIT Internal Medicine; ATTEND Internal Medicine
DX: Z51.5 Encounter for palliative care (principal); I61.5 Nontraumatic intracerebral hemorrhage, intraventricular; G93.6 Cerebral edema; G93.5 Compression of brain; E07.9 Disorder of thyroid, unspecified; Z66 Do not resuscitate; E11.9 Type 2 diabetes mellitus without complications; J44.9 Chronic obstructive pulmonary disease, unspecified; E78.5 Hyperlipidemia, unspecified; K21.9 Gastro-esophageal reflux disease without esophagitis; F32.A Depression, unspecified; Z91.81 History of falling; F41.9 Anxiety disorder, unspecified; I49.3 Ventricular premature depolarization; M19.90 Unspecified osteoarthritis, unspecified site; R29.6 Repeated falls; M81.0 Age-related osteoporosis without current pathological fracture; W06.XXXA Fall from bed, initial encounter; Z79.1 Long term (current) use of non-steroidal anti-inflammatories (NSAID); Z79.83 Long term (current) use of bisphosphonates; Z79.84 Long term (current) use of oral hypoglycemic drugs; Z79.890 Hormone replacement therapy; Z79.899 Other long term (current) drug therapy; Z86.718 Personal history of other venous thrombosis and embolism; Z87.891 Personal history of nicotine dependence; Z90.710 Acquired absence of both cervix and uterus; Z96.651 Presence of right artificial knee joint; Z88.2 Allergy status to sulfonamides; Z88.8 Allergy status to other drugs, medicaments and biological substances; Z87.19 Personal history of other diseases of the digestive system; Z87.01 Personal history of pneumonia (recurrent); Y92.122 Bedroom in nursing home as the place of occurrence of the external cause